=== PATIENT | male | born 1945 | race Caucasian/White ===

== ENCOUNTER → 2023-07-20 10:51 | Outpatient (REF) | payer MEDICARE, SELFPAY ==
[2023-07-20 12:55] LABS: PSA, Total - Diagnostic 7.28 ng/ml (0.0-4.0)
== END ==
LOC: HWLAB 10:51
PROVIDERS: ATTENDING PHYSICIAN Specialist; FAMILY PHYSICIAN Internal Medicine
DX: R97.20 Elevated prostate specific antigen [PSA] (principal)
CPT/HCPCS: 36415; 84153

== ENCOUNTER → 2023-12-10 10:58 | Outpatient (REF) | payer MEDICARE, SELFPAY ==
[2023-12-10 13:27] LABS: PSA, Total - Diagnostic 8.55 ng/ml (0.0-4.0)
== END ==
LOC: HWLAB 10:58
PROVIDERS: ATTENDING PHYSICIAN Specialist; FAMILY PHYSICIAN Internal Medicine
DX: R97.20 Elevated prostate specific antigen [PSA] (principal)
CPT/HCPCS: 36415; 84153

== ENCOUNTER 2024-03-03 16:06 | Inpatient (IN) | payer MEDICARE, SELFPAY ==
[2024-03-03] VITALS (20 sets, daily range): BP systolic 74–125; BP diastolic 42–75; BMI 25.1
--- NOTE | 2024-03-03 14:18 | ED.GENMED ---
History of Present Illness
General
Chief Complaint: Heart Rate Problem
Source: patient
Exam Limitations: none
Time Seen by Provider: 03/03/24 14:18
Nursing documentation reviewed up to this point in time: agreed with
History of Present Illness
History of Present Illness:
The patient is an 78-year-old man who reports he is generally well and healthy. He reports he has had several days of a cough and went to urgent care prior to arrival for evaluation of the cough. Vital signs were checked and he was found to be in
atrial fibrillation. Patient reports this is new to him and he has never had a history of A-fib. Patient denies palpitations, chest pain, dizziness and shortness of breath. He denies fever.
Past History
Past History
ED Past Medical History: Other (History of low blood pressure)
ED Past Surgical History: Appendectomy
Social History
Tobacco: Non-smoker
Alcohol: Occasional
Drug: None
Personal:
Living: with family
Employment: Employed
Family History
Family History: Hypertension
Review of Systems
Review of Systems
Allergies reviewed?: Yes
All Other Systems: ROS reviewed and negative except as documented in HPI and ROS
Constitutional: Reports no symptoms
EENT: Reports no symptoms
Respiratory: Reports cough
Cardiac: Reports no symptoms
ABD/GI: Reports no symptoms
: Reports no symptoms
Musculoskeletal: Reports no symptoms
Skin: Reports no symptoms
Neurological: Reports no symptoms
Endocrine: Reports no symptoms
Hematologic/Lymphatic: Reports no symptoms
Psychiatric: Reports no symptoms
Phy Exam
Physical Exam
Physical Exam:
Physical Exam
General: no apparent distress, not acutely ill, well and comfortable appearing
Neck: supple. no meningeal signs. normal psoterior pharynx
Heart: Tachycardic, irregular
Lungs: no acute respiratory distress. clear bilaterally
Abdomen: normal bowel sounds. not tender. no CVAT
Neuro: alert and oriented. no focal neurological deficits
Skin: no rash
Psychiatric: well kept. interactive and cooperative
Extremities: no edema. no calf tenderness. negative homans. good distal pulses
Course
Orders/Labs/Results
Orders:
Orders
03/03/24 14:14
Electrocardiogram (*1) Stat
Reason for Study: Other
Other Reason for Exam: chest pain
EKG- Treatment ONCE
03/03/24 14:27
Complete Blood Count/With Diff Urgent
Lactic Acid Urgent
PT/INR [Prothrombin Time] Urgent
PTT Urgent
03/03/24 14:31
COVID-19 Antigen Urgent
Source: Nasal Swab
03/03/24 14:36
Comprehensive Metabolic Panel Urgent
TSH Urgent
CR Chest - 2 Views Urgent
Comment:
Reason For Exam: cough
03/03/24 14:40
Diltiazem HCl [Cardizem] 2.5 mg IV NOW STA
03/03/24 14:45
Diltiazem 125 mg/125 ml Nss [Cardizem] 125 mg in 125 ml IV PER PROTOCOL
Initial dose in mg/hr, then titrate:: 2.5
Titrate to keep:: Heart rate 80-100 bpm
Titrate by mg/hr:: 5 mg/hr
Frequency of titrations (minutes):: 15
Maximum dose in mg/hr:: 15
03/03/24 14:47
Diltiazem HCl [Cardizem] 2.5 mg IV NOW STA
03/03/24 15:02
Heparin 4,000 units IV NOW STA
03/03/24 15:03
PTT Urgent
Comment: Obtain baseline before beginning heparin infusion if not already collected
Nursing to Place Non Medication Order As Directed
Physician Order: PTT 6 hours after initial start of Heparin infusion
03/03/24 15:15
Heparin 05700 Units/250 ml 25,000 units in 250 ml IV PER PROTOCOL
Weight to be used for heparin protocol in kilograms (kg):: 83.8
Protocol:: Cardiac Tx/Acute Coronary
PTT Goal Range to be used:: PTT 73 to 111 seconds
Order type:: Initial
INITIAL Infusion Dose (UNITS/KG/hr) & then follow protocol:: 12 units/kg/hr
Infusion Dose in UNITS/hr & then follow protocol (UNITS/hr):: 1,000
INFUSION RATE in mL/hr & then follow protocol (mL/hr):: 10
PTT less than or equal to 64 seconds:: Increase rate by 200 units/hr (+ 2 mL/hr)
PTT 64.1 to 72.9 seconds:: Increase rate by 100 units/hr (+ 1 mL/hr)
PTT 73 to 111 seconds:: Target Range. No change in rate.
PTT 111.1 to 130.9 seconds:: Decrease rate by 100 units/hr (- 1 mL/hr)
PTT 131 to 199.9 seconds:: HOLD for 1 hr. Then decrease rate by 200 units/hr (- 2 mL/hr)
PTT greater than or equal to 200 seconds:: HOLD for 2 hrs & Notify Provider. Then decrease by 200 units/hr (-
2 mL/hr)
Lab follow-up:: Each change, PTT q6h until 2 consecutive are therapeutic. Then PTT
daily.
Abnormal Lab Results
03/03/24
14:27
RBC 4.14 L 10^6/uL
(4.70-6.10)
Hgb 12.6 L g/dL
(13.0-18.0)
Hct 36.6 L %
(39.0-52.0)
MPV 11.9 H fL
(7.4-10.4)
Abs Immat Gran (auto) 0.1 H 10^3/uL
(0-0.05)
Absolute Neuts (auto) 7.8 H 10^3/uL
(1.4-6.5)
Absolute Lymphs (auto) 0.4 L 10^3/uL
(1.2-3.4)
Immature Gran % 0.7 H %
(0-0.5)
Neutrophils % 89.5 H %
(42.2-75.2)
Lymphocytes % 4.7 L %
(20.5-51.1)
PT 16.9 H Sec
(11.4-14.6)
APTT 35.1 H Sec
(23.4-35.0)
03/03/24 14:27
Vital Signs
Initial and Last Documented VS:
Initial Vital Signs
Temp Pulse Resp BP Pulse Ox
98.2 F 135 18 106/69 94
03/03/24 14:17 03/03/24 14:17 03/03/24 14:17 03/03/24 14:17 03/03/24 14:17
Last Documented Vital Signs
Temp Pulse Resp BP Pulse Ox
98.2 F 134 18 106/69 94
03/03/24 14:17 03/03/24 14:48 03/03/24 14:17 03/03/24 14:48 03/03/24 14:17
MDM/Problems Addressed
Differential Diagnosis Includes:
New onset A-fib, new onset a flutter, sinus tachycardia, pneumonia, COVID
MDM/Problems Addressed:
Patient presents with acute tachycardia and cough
*Pulse Oximetry
Patient hypoxic: no
*EKG
Interpreted by ED Provider?: Yes
Interpretation: abnormal
Comparison EKG: changes noted (Now tachycardic, in A-fib)
Rate: tachycardiac
Rhythm: a-fib
[place]: normal axis
Interval: normal interval
QRS Pattern: normal QRS
Ischemia: non-specific ST changes
*Outsole Scheduler Interpretation
Rate: tachycardiac
Interpretation: abnormal
Rhythm: a-fib
*Critical Care Note
Total Time (30-74mins, 75-104mins- exclusive of procedures): Not Applicable
Data Reviewed
Review of Other/Old Records Reveals: Discharge Summary (Hospitalist discharge summary reviewed from 2009 when patient was admitted for fevers and chills)
Source: patient
Patient Management
Social determinants of health affecting care: Living situation and Strong social support
Discussion with other providers: Hospitalist
Escalation/DeEscalation of care consider admission/obs:
Given patient's new presentation of A-fib with RVR, decision made to start anticoagulation and rate control. There is no sign of heart failure.
ED Attending Note
-
Portions of this chart may have been created with voice recognition software.� Occasional wrong word or��sound alike� substitutions may have occurred due to the inherent limitations of voice recognition software.
Discharge Plan
Departure
Patient Disposition: Admit
Date of Disposition: 03/03/24
Time of Disposition: 15:02
Admit to: Telemetry
Presentation/result/management discussed w/ accepting MD/DO: Hospitalist
Patient with high blood pressure during this ER visit?: No
Condition: Good
Discharge Problem:
New onset a-fib, Atrial fibrillation with rapid ventricular response
Prescriptions:
No Action
No Current Medications
0
Referrals:
Tex Lu MD [Family Provider] -
Interventions
Interventions:
*Risk Screen - Suicide Last Done: 03/03/24 14:17
*General Assessment Last Done: 03/03/24 14:17
*Neglect/Abuse Screening Last Done: 03/03/24 14:17
ED- Fall Risk Assessment Last Done: 03/03/24 14:17
*ED COVID-19 Vaccine History Last Done: 03/03/24 14:17
ED- Cardiac Assessment Last Done: 03/03/24 14:17
ED- Pulmonary Assessment Last Done: 03/03/24 14:17
Discharge Date and Time
Print Language: ITALIAN
[2024-03-03 14:41] LABS: % Basophils 0.2 % (0-2); % Immature Granulocytes 0.7 % (0-0.5); % Lymphocytes 4.7 % (20.5-51.1); % Monocytes 4.9 % (1.7-9.3); % Neutrophils 89.5 % (42.2-75.2); Absolute Immature Granulocytes 0.1 10^3/uL (0-0.05); Absolute Lymphocytes 0.4 10^3/uL (1.2-3.4); Absolute Monocytes 0.4 10^3/uL (0.1-0.6); Absolute Neutrophils 7.8 10^3/uL (1.4-6.5); Hematocrit 36.6 % (39.0-52.0); Hemoglobin 12.6 g/dL (13.0-18.0); Mean Corp Hgb Conc. 34.4 g/dL (33.0-37.0); Mean Corpuscular Hgb 30.4 pg (27.0-31.0); Mean Corpuscular Volume 88.4 fL (80.0-94.0); Mean Platelet Volume 11.9 fL (7.4-10.4); Nucleated Red Blood Cells % 0 % (-); Platelet Count 228 10^3/uL (130-400); Red Blood Cell Count 4.14 10^6/uL (4.70-6.10); Red Cell Dist. Width 13.6 % (11.5-14.5); White Blood Cell Count 8.7 10^3/uL (4.8-10.8)
[2024-03-03] MEDS: CARDIZEM 2.5 MG IV (14:48)
[2024-03-03 14:51] LABS: INR 1.34; PT 16.9 Sec (11.4-14.6)
[2024-03-03 14:52] LABS: APTT 35.1 Sec (23.4-35.0)
[2024-03-03 14:57] LABS: COVID-19 Antigen Negative (Negative)
[2024-03-03] MEDS: CARDIZEM 125 IV (14:57)
[2024-03-03 14:58] LABS: Lactic Acid 1.1 mmol/L (0.7-2.0)
[2024-03-03] MEDS: HEPARIN 4000 UNITS IV (15:26)
[2024-03-03] MEDS: HEPARIN 25000 UNITS/250 ML IV (15:27)
--- NOTE | 2024-03-03 15:45 | HPS.HSE ---
Addendum entered and electronically signed by Cherelle Chacon PA-C 03/03/24 16:28:
CMP results reviewed and reveal Cr 1.8 and Elevated LFT
Assessment/Plan:
Elevated Creatinine, suspect component of MARQUISE in setting of recent URI and hypotension
-Continue IVFs
-Recheck creatinine in AM
-Monitor bladder scans as patient has history of BPH but not currently on any medications
Abnormal LFTs, possibly related to recent viral infection and hypotension
-Continue to trend LFTs
Original Note:
Family Physician
-
Family Physician: Cong Lu
Chief Complaint
-
Elevated Heart Rate
History of Present Illness
Patient is an 78 y/o male without significant past medical history who was sent from urgent care with elevated heart rate. Patient reports a 'bad cold' for the past week. He reports cough, mild sore throat, generalized weakness and fatigue. He
went urgent care today due to persistent symptoms where he was found to have a very elevated heart rate and ECG revealed atrial fibrillation. Patient denies any prior cardiac history including atrial fibrillation. He denies chest pains or
palpitations.
Medical History
Past Medical History
Past Medical History: Reports Other
Additional Past Medical History:
Right Upper Ext DVT in 2018
BPH
Past Surgical History: Reports Other
Additional Past Surgical History:
Appendectomy
Social History
Tobacco: Non-smoker
Alcohol: Occasional (One beer once a week)
Personal:
Family History
Family History: Not pertinent
Allergies / Home Medications
Allergies reflects when Allergies were last updated in [employer].
Home Medications with original date entered in [employer]
Allergy/Medication List:
Allergies
Allergy/AdvReac Type Severity Reaction Status Date / Time
No Known Allergies Allergy Verified 05/28/16 09:49
Home Medications
No Meds [No Current Medications] 03/03/24
Review of Systems
-
A 12 point ROS was completed and negative except as noted: Yes
Constitutional: Denies Fever or Chills
Respiratory: Reports Cough; Denies Trouble Breathing
Cardiac: Denies Chest Pain or Palpitations
Abdomen/GI: Denies Abdominal Pain, Nausea, Vomiting or Diarrhea
Physical Exam
Vital Signs
Vital Signs
Temp Pulse Resp BP Pulse Ox
98.2 F 147 25 90/56 92
03/03/24 14:17 03/03/24 15:32 03/03/24 15:32 03/03/24 15:32 03/03/24 15:32
Physical Exam
General: Comfortable and Conversant
HEENT: Anicteric and Moist mucous membranes
Respiratory: Clear and Non Labored Respirations
Cardiac: S1/S2, Irregular Rhythm and Tachycardia; No Murmur
GI: Soft and Non Tender
Rectal: Deferred by Provider
Musculoskeletal: No Clubbing, No Cyanosis and No Edema
Skin: Warm and Dry
Neuro: Awake, Alert and Nonfocal/grossly intact
Psych: Calm
Laboratory Results
-
03/03/24 14:27
Laboratory Results
PT 16.9 Sec (11.4-14.6) H 03/03/24 14:27
INR 1.34 03/03/24 14:27
APTT 35.1 Sec (23.4-35.0) H 03/03/24 14:27
Lactic Acid 1.1 mmol/L (0.7-2.0) 03/03/24 14:27
Data Reviewed
-
Lab Data: Labs Reviewed by me
Impression/Plan
-
Atrial Fibrillation with Rapid Ventricular Response, new diagnosis
-Consult Cardiology
-Continue heparin drip
-Continue cardizem drip
-Check Echo
-Await TSH
BPH
-Patient is not on any medications as outpatient
DVT proph: Heparin drip
Code Status: Full Code
--- NOTE | 2024-03-03 16:06 | W.PN.UPDATE ---
Addendum entered and electronically signed by Jacinda Timmons MD 03/03/24 22:26:
CXR shows bilateral infiltrates concerning for PNA. Checked BNP which was 93364 and Procal of 2 so IV fluids were stopped and Ceftriaxone/Azithromycin started.
Original Note:
Update Note
Progress Note Update
This is an addendum to the H&P written by Cherelle Choi on 03/03/2024.� Patient seen and examined independently with PA.
78-year-old male past medical history of BPH, right upper extremity DVT in 2018 sent in from urgent care after he went in for upper respiratory symptoms ongoing for a week.� Found to be in new onset atrial fibrillation with RVR and sent into the
emergency room.
Cardizem drip and heparin drip started.� Check TSH.� Check echo.� Cardiology consulted.
[2024-03-03 16:09] LABS: ALT (SGPT) 89 U/L (0-50); AST (SGOT) 103 U/L (17-59); Albumin 3.1 g/dl (3.5-5.0); Alkaline Phosphatase 589 U/L (38-126); Blood Urea Nitrogen 35 mg/dl (9-20); Calcium 9.4 mg/dl (8.4-10.2); Carbon Dioxide 15 mmol/L (22-30); Chloride 107 mmol/L (98-107); Estimated Creatinine Clearance 36 ml/min; Glucose 109 mg/dl (70-99); Potassium 4.1 mmol/L (3.5-5.1); Sodium 137 mmol/L (135-145); Total Bilirubin 2.9 mg/dl (0.2-1.3); Total Protein 6.4 g/dl (6.3-8.2); eGFR 37.58
[2024-03-03 16:35] LABS: TSH 0.69 uIU/ml (0.47-4.68)
[2024-03-03] MEDS: NSS 1000 IV (16:59)
[2024-03-03] MEDS: NSS 500 IV (17:10)
--- NOTE | 2024-03-03 18:38 | PTCARENOTE ---
patient admitted to IVU, monitor placed NSR, VSS. at present IV Cardizem drip is OFF. IV heparin @ 1000units/hr and IV NSS @ 80cc/hr via left forearm without difficulties. patient is blind in left eye. patient has dry cough, lung fragoso diminished
bialt, on RA. oriented patient to room and surroundings, ordered dinner.
--- NOTE | 2024-03-03 18:54 | CON.CAR ---
Addendum entered and electronically signed by Davonte Villatoro MD 03/03/24 19:54:
Elevated LFTs. Defer to primary team for additional evaluation.
Original Note:
Consultation
Consultation Request
Date/Time Consultation Requested: 03/03/2024 at 1700
Date/Time Consultation Performed: 03/03/2024 at 1800
Requesting Provider: Hospitalist
Performing Provider: Dr. Villatoro
Reason for Consultation: A-fib
Medical History
-
History of Present Illness:
78 year male admitted with new onset A-fib with RVR. Patient stated he was feeling well until Wednesday he felt like he developed a cough without sputum production thought he was just getting a cold. He tested negative for COVID at home. Cough has
persisted all week he thought he felt a little better but his insisted that he go for evaluation. He went to urgent care was noted to be in A-fib with RVR so he was directed to the emergency department. No fever no chest pain no shortness of
breath orthopnea or lower extremity edema no palpitations or heart racing. No prior history of cardiac disease.
Denies history of stroke/TIA, CAD, PAD, hypertension, diabetes or heart failure. No history of bleeding issues. He states he had a blood clot in his arm in 2018. He does not know the details. He states he was not treated with anticoagulation.
There was a venous ultrasound from 2018 which showed no occlusive DVT small amount of residual nonocclusive thrombus in the right subclavian vein and right basilic vein
Past medical history
Right upper extremity DVT in 2018 BPH
Past Medical History
Past Medical History: Other (As above)
Social History
Tobacco: Non-Smoker
Living: Alone
Family History
Family History: Other (Negative for premature CAD)
Allergies / Home Medications
Allergy/AdvReac Type Severity Reaction Status Date / Time
No Known Allergies Allergy Verified 05/28/16 09:49
�Medication �Instructions �Recorded �Confirmed �Type
No Meds [No Current Medications] 03/03/24 03/03/24 History
Review of Systems
-
All other systems: Negative unless noted
Physical Exam
Vital Signs
Temp Pulse Resp BP Pulse Ox
98.2 F 77 18 100/72 95
03/03/24 18:22 03/03/24 18:23 03/03/24 18:22 03/03/24 18:23 03/03/24 18:22
Lab Results
03/03/24 14:27
03/03/24 15:32
Physical Exam
General: Well Developed
HEENT: Normocephalic
Respiratory: Other (No wheezes rales or rhonchi)
Cardiac: Irregular Rhythm
GI: Soft, Non Tender and Non Distended
Genito-urinary: No Costovertebral Tender
Musculoskeletal: No Clubbing
Skin: Warm, Dry and Rash (None)
Neuro: Awake, Alert and Oriented
Hematologic/Lymphatic: No Lymphadenopathy
Psych: Calm and Other (Cooperative)
Impression / Plan
-
A-fib with RVR.
-New onset.
- Duration unknown
-[id number] (a age greater than 75)
-Spontaneously converted back to sinus rhythm
-Currently on IV heparin can transition to Eliquis 2.5 mg twice daily (considering age 78 and creatinine greater than 1.5) when okay with primary team
-Echo
-TSH
-Transition IV Cardizem to oral.
.
Abnormal chest x-ray. As noted below
As per report .there are fairly confluent regions of parenchymal opacity in the left hilar and suprahilar region as well as the right suprahilar, hilar, and infrahilar region, central predominance. Additionally, there is patchy parenchymal opacity
within the rest of both lungs. In the right lung particularly, some of these regions have a somewhat nodular configuration.
All these findings are new since examination in 2018.One consideration would be bilateral pneumonia. Neoplastic disease or a combination of neoplasia and pneumonia must also be considered, and continued close follow-up is advised. The pattern does
not appear to be highly suggestive of a pulmonary edema pattern. No significant pleural effusion is evident.
-Consider chest CT
-Additional evaluation as directed by primary team
.
Renal insufficiency creatinine 1.8. Last creatinine in [facility] 1.5. Unclear if patient has acute on chronic MARQUISE or if this is just his baseline CKD. Continue to monitor.
.
History of DVT right upper extremity per history patient denies ever being on anticoagulation there are venous ultrasounds with nonocclusive thrombus as noted above which subsequently resolved on follow-up studies.
Data Reviewed
-
EKG: Report Reviewed by me
Medical Tests (Nuc Med, Echo etc): Report Reviewed by me
Labs: Labs Reviewed by me
[2024-03-03 20:42] LABS: NT-proBNP 10100 pg/ml
[2024-03-03 21:39] LABS: APTT 68.8 Sec (23.4-35.0)
[2024-03-03] MEDS: STERILE WATER FOR INJECTION 10 ML IV (23:25)
[2024-03-03] MEDS: ROCEPHIN 1000 MG IV (23:25)
[2024-03-03] MEDS: ZITHROMAX INFUSION 250 IV (23:25)
[2024-03-04] VITALS (11 sets, daily range): BP systolic 94–130; BP diastolic 51–82; BMI 24.7
[2024-03-04] MEDS: TYLENOL 650 MG PO ×2 (00:34→23:28)
--- NOTE | 2024-03-04 01:48 | PTCARENOTE ---
Assumed care of the pt @ 1900. AAOx3 SR on the monitor. VSS Heparin gtt titrated to maintain PTT 73-111. Stress incontinence. Occasional cough non productive. Call ibarra within reach
[2024-03-04 04:20] LABS: Hemoglobin 11.8 g/dL (13.0-18.0); Mean Corp Hgb Conc. 33.7 g/dL (33.0-37.0); Mean Corpuscular Hgb 30.3 pg (27.0-31.0); Mean Corpuscular Volume 89.7 fL (80.0-94.0); Mean Platelet Volume 11.8 fL (7.4-10.4); Platelet Count 229 10^3/uL (130-400); Red Cell Dist. Width 13.8 % (11.5-14.5); White Blood Cell Count 8.9 10^3/uL (4.8-10.8)
[2024-03-04 04:28] LABS: APTT 48.4 Sec (23.4-35.0)
[2024-03-04 05:31] LABS: ALT (SGPT) 83 U/L (0-50); AST (SGOT) 90 U/L (17-59); Albumin 2.9 g/dl (3.5-5.0); Alkaline Phosphatase 656 U/L (38-126); Blood Urea Nitrogen 41 mg/dl (9-20); Calcium 8.7 mg/dl (8.4-10.2); Carbon Dioxide 14 mmol/L (22-30); Chloride 108 mmol/L (98-107); Direct Bilirubin 2.9 mg/dl (0.0-0.4); Estimated Creatinine Clearance 27 ml/min; Glucose 110 mg/dl (70-99); Potassium 4.2 mmol/L (3.5-5.1); Sodium 138 mmol/L (135-145); Total Bilirubin 3.2 mg/dl (0.2-1.3); Total Protein 6.1 g/dl (6.3-8.2); eGFR 26.61
--- NOTE | 2024-03-04 05:55 | PTCARENOTE ---
Pt CO2 14 on morning MARK Vaz[employer]VIEW[employer] notified
[2024-03-04] MEDS: SODIUM BICARBONATE 1150 MEQ IV ×2 (06:47→23:27)
--- NOTE | 2024-03-04 06:58 | W.PN.UPDATE ---
Update Note
Progress Note Update
patient with anion gap acidosis with gap of 14. Nephrology consult placed and sodium bicarbonate in sterile water at 50 mls/hr ordered. Patient with hx of urinary retention so awaiting bladder scan result. Has hx prostate enlargement.
--- NOTE | 2024-03-04 08:12 | W.PN.HOSP.TC ---
Today's Communication/Plan
-
Transfer to IMU
Bolus IV fluid
Trend BP
Hold heparin and Cardizem for now
Cont Zythromax + Rocephin
Assessment / Plan
Assessment / Plan
78-year-old male past medical history of BPH, right upper extremity DVT in 2018 sent in from urgent care after he went in for upper respiratory symptoms ongoing for a week.� Found to be in new onset atrial fibrillation with RVR and sent into the
emergency room.Cardizem drip and heparin drip started in ED.
Chest x-ray (03/03):
As per report .there are fairly confluent regions of parenchymal opacity in the left hilar and suprahilar region as well as the right suprahilar, hilar, and infrahilar region, central predominance. Additionally, there is patchy parenchymal opacity
within the rest of both lungs. In the right lung particularly, some of these regions have a somewhat nodular configuration.
All these findings are new since examination in 2018.One consideration would be bilateral pneumonia. Neoplastic disease or a combination of neoplasia and pneumonia must also be considered, and continued close follow-up is advised. The pattern does
not appear to be highly suggestive of a pulmonary edema pattern. No significant pleural effusion is evident.
#New onset A-fib with RVR
-[id number]
-Spontaneously converted back to sinus rhythm
-Currently on IV heparin- per cards can transition to Eliquis 2.5 mg twice daily pending renal function
-ProBNP > 45052, Check Echo
-TSH WNL
-Hold Cardizem for now given BPs on the lower side
#High anion gap Metabolic acidosis
- Current anion gap=14
- Creatinine 2.4. (Last creatinine in [facility] 1.5). Acute on chronic kidney injury
- Will give bolus fluid and transfer patient to IMU for closer monitoring
- MARQUISE might be in the setting of PNA
- History of BPH but no retention and has good output
- Trend BPs
- Bicarb drip started
# Possible B/L Pneumonia
- Cont Zitromax + Rocephin
- Started fluids
- Afebrile
- No leukocytosis
- Lactic acid WNL- Procal elevated
- Will order chest CT for further evaluation of possible mass in the following days
# Elevated LFTs
- Might be reactive in the setting of underlying infection or due to CHF
- Will cont to monitor LFT
- Will check RUQ U/S down the road if elevated LFTs does not improve
#Suspicious History of DVT right upper extremity
- Was not placed on any anti-coagulation at that time
# Excessive bleeding from IV line
- Will hold Heparin and other AC for now
Anticipated Discharge: Today
Subjective/Interval History
-
Date of Service: March 04, 2024
Patient denies chest pain, coughs or shortness of breath. Denies abdominal pain. Is able to empty bladder w/o any signs of retention.
Objective Data
-
Labs:
Laboratory Results
03/03/24 03/03/24 03/04/24
15:03 21:17 03:47
WBC 8.9
Hgb 11.8 L
Hct 35.0 L
Plt Count 229
APTT Cancelled 68.8 H 48.4 H
Sodium 138
Potassium 4.2
Chloride 108 H
Carbon Dioxide 14 L*
BUN 41 H
Creatinine 2.4 H
Glucose 110 H
Calcium 8.7
Total Bilirubin 3.2 H
AST 90 H
ALT 83 H
Alkaline Phosphatase 656 H
03/04/24
11:00
WBC
Hgb
Hct
Plt Count
APTT Pending
Sodium
Potassium
Chloride
Carbon Dioxide
BUN
Creatinine
Glucose
Calcium
Total Bilirubin
AST
ALT
Alkaline Phosphatase
Vital Signs:
Vital Signs
Temp Pulse Resp BP Pulse Ox
97.5 F 75 24 94/65 95
03/04/24 03:50 03/04/24 06:15 03/04/24 03:50 03/04/24 03:42 03/04/24 06:14
I&O
03/03/24 03/04/24 03/05/24
06:59 06:59 06:59
Intake Total 80 / 80 132 / 132
Balance 80 / 80 132 / 132
Review of Systems
-
History Source: Patient
All other systems: Reviewed and negative
Physical Exam
-
General: Appears in Distress
HEENT: Normocephalic and Anicteric
Respiratory: Crackles (heard over left base) and Non Labored Respirations
Cardiac: Regular Rhythm, S1/S2 and Tachycardic (negative)
GI: Soft, Nondistended, Normal Bowel Sounds and Tender (Mild RUQ tenderness)
Genito-urinary: No Costovertebral Tender
Musculoskeletal: No Clubbing, No Cyanosis and No Edema
Skin: Warm and Dry
Neuro: Awake, Alert, Oriented and AO x 3
--- NOTE | 2024-03-04 08:29 | W.PN.CD ---
Today's Communication / Plan
-
back in sinus and off IV cardizem
would add lwo dose BB when BP will tolerate.
concerning rising creatinine to 2.4 and metabolic acidosis
optimize BP. Patient receiving additonal volume.
abx to cover PNA being directed by the primary team/ hospitalists
issues reviewed wtChristian Shin
Impression / Plan
-
A-fib with RVR.
-New onset.
- Duration unknown
-[id number] (a age greater than 75)
-Spontaneously converted back to sinus rhythm
-Currently on IV heparin
-Echo
-TSH
-Toprol 25 mg aday if BP tolerates
.
Abnormal chest x-ray. As noted below
As per report .there are fairly confluent regions of parenchymal opacity in the left hilar and suprahilar region as well as the right suprahilar, hilar, and infrahilar region, central predominance. Additionally, there is patchy parenchymal opacity
within the rest of both lungs. In the right lung particularly, some of these regions have a somewhat nodular configuration.
All these findings are new since examination in 2018.One consideration would be bilateral pneumonia. Neoplastic disease or a combination of neoplasia and pneumonia must also be considered, and continued close follow-up is advised. The pattern does
not appear to be highly suggestive of a pulmonary edema pattern. No significant pleural effusion is evident.
-Consider chest CT
- Additional evaluation as directed by primary team
- abx to cover PNA
.
Renal insufficiency creatinine- acute on chronic . on rise to 1.8 to 2.4. also with associated acidosis. Bp relatively low overnight despite being off IV cardizem
acidosis. in setting of above including renal insuffiency
- defer to primary regarding assesemnt
.
elevated LVF- evaluation per hospitaists. if patient having non contrast chest CT may consider including abdomen
.
History of DVT right upper extremity per history patient denies ever being on anticoagulation there are venous ultrasounds with nonocclusive thrombus as noted above which subsequently resolved on follow-up studies.
Physical Exam
Vital Signs/Labs
Vital Signs
Temp Pulse Resp BP Pulse Ox
97.5 F 75 24 94/65 95
03/04/24 03:50 03/04/24 06:15 03/04/24 03:50 03/04/24 03:42 03/04/24 06:14
03/03/24 03/04/24 03/05/24
06:59 06:59 06:59
Actual Weight 83.8 kg 82.4 kg
03/04/24 03:47
03/04/24 03:47
PT 16.9 Sec (11.4-14.6) H 03/03/24 14:27
INR 1.34 03/03/24 14:27
APTT 48.4 Sec (23.4-35.0) H 03/04/24 03:47
TSH 0.69 uIU/ml (0.47-4.68) 03/03/24 15:32
03/03/24
14:27
[id number] Pept 14240
Physical Exam
Respiratory: Respiratory effort normal
GI: Soft
Neuro/Psych: Alert
Data Reviewed
-
Date of Service: March 04, 2024
--- NOTE | 2024-03-04 08:34 | W.PN.UPDATE ---
Update Note
Progress Note Update
I saw and evaluated the patient. I reviewed the resident�s note and agree with findings and plan as documented in the resident�s note.
Currently denies chest pain or shortness of breath.
Gen: NAD, AAOx3.
Eyes: EOMI, PERRLA, no scleral icterus.
Neck: supple.
CV: RRR, +S1/S2, no m/r/g.
Resp: Faint rales left base, otherwise clear to auscultation bilaterally
Abd: +BS, soft, NT, ND
Skin: No rashes.
Neuro: CN 2-12 intact, non-focal.
Psych: Normal mood and affect.
CXR: Bilateral parenchymal opacities as described, new since examination in 2018.
Acute PNA:
-viral vs bacterial. Procal elevated but procal is not reliable with MARQUISE.
-cont Rocephin/Azithro
-acute PNA appears to be the primary disease process at this time
MARQUISE and non-AG met acidosis:
-likely due to recent URI (now PNA) and hypotension
-AG 14 (12+/-2)
-1L NS bolus wide open, recheck BP after. Will likely require another 1L NS after.
-Continue NaHCO3 infusion after volume rescucitated
Elevated LFTs:
-likely due to infection and hypotension
-Continue to trend LFTs
-check RUQ U/S (can be done after BP improved, likely later today)
Atrial Fibrillation with Rapid Ventricular Response, new diagnosis:
-converted to SR with cardizem gtt
-hypotension limits ability to use beta-lorne or Cardizem. Should he go back into atrial fibrillation with a rapid ventricular response amiodarone will need to be considered.
-stop heparin gtt with acute bleeding from LUE
-TSH normal
-check echo
-discussed with cardiology
BPH
-Patient is not on any medications as outpatient
FULL/SCDs (stopping heparin due to acute bleeding)
Transfer to IMU
Total time spent on today's encounter was 50 minutes which included time spent in counseling the patient/family regarding diagnosis and treatment plan as listed above, goals of care, and symptom management. Case was discussed with nursing staff,
specialists, and care coordinators/case management. All labs and imaging personally reviewed by me. Remainder the time spent in detailed review of previous records, lab data, imaging, and other medical provider documentation.
[2024-03-04] MEDS: NSS 1000 IV ×3 (09:02→15:49)
--- NOTE | 2024-03-04 09:15 | W.CON.NEPH ---
Consultation
-
Date/Time Consultation Requested: 03/04/2024 6:45 AM
Date/Time Consultation Performed: 03/04/2024 9:15 AM
Requesting Provider: Dr. Shin
Performing Provider: Dr. Pinedo
Reason for Consultation: Acute kidney injury
Medical History
-
Chief Complaint: Acute kidney injury
History of Present Illness:
The patient is an 78 y/o male without significant past medical history who was sent from urgent care with elevated heart rate. The patient does have a past medical history of chronic kidney disease stage III as noted by a creatinine level of 1.5 as
of 07/24/2021.this creatinine of 1.5 is longstanding dating back to 2009 when he had been previously admitted to the hospital with urinary retention and fever of unknown origin. 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
vein and right basilic vein but is not maintained on oral anticoagulation therapy .The patient reports a 'bad cold' for the past week. He reports cough, mild sore throat, generalized weakness and fatigue. He went urgent care today due to
persistent symptoms where he was found to have a very elevated heart rate and ECG revealed atrial fibrillation. Patient denies any prior cardiac history including atrial fibrillation. He denies chest pains or palpitations. On presentation to the
hospital he was noted to have acute on chronic kidney injury with a creatinine now up to 2.4 off his admission baseline of 1.8 and nephrology was asked to see the patient for acute on chronic kidney injury.
Social History
Tobacco: Non-Smoker
Alcohol: None
Personal: Single
Allergies / Home Medications
Allergy/AdvReac Type Severity Reaction Status Date / Time
No Known Allergies Allergy Verified 05/28/16 09:49
�Medication �Instructions �Recorded �Confirmed �Type
No Meds [No Current Medications] 03/03/24 03/03/24 History
Review of Systems
-
History Source: Patient
All other systems: Negative unless noted
Respiratory: Cough
Physical Exam
Vital Signs
Vital Signs
Temp Pulse Resp BP Pulse Ox
97.5 F 75 24 94/65 95
03/04/24 03:50 03/04/24 06:15 03/04/24 03:50 03/04/24 03:42 03/04/24 06:14
Lab Results
03/04/24 03:47
03/04/24 03:47
WBC 8.9 10^3/uL (4.8-10.8) 03/04/24 03:47
RBC 3.90 10^6/uL (4.70-6.10) L 03/04/24 03:47
Hgb 11.8 g/dL (13.0-18.0) L 03/04/24 03:47
Hct 35.0 % (39.0-52.0) L 03/04/24 03:47
Plt Count 229 10^3/uL (130-400) 03/04/24 03:47
Sodium 138 mmol/L (135-145) 03/04/24 03:47
Potassium 4.2 mmol/L (3.5-5.1) 03/04/24 03:47
Chloride 108 mmol/L (98-107) H 03/04/24 03:47
Carbon Dioxide 14 mmol/L (22-30) L* 03/04/24 03:47
BUN 41 mg/dl (9-20) H 03/04/24 03:47
Creatinine 2.4 mg/dL (0.7-1.3) H 03/04/24 03:47
eGFR 26.61 03/04/24 03:47
Glucose 110 mg/dl (70-99) H 03/04/24 03:47
Calcium 8.7 mg/dl (8.4-10.2) 03/04/24 03:47
Yfj-Y-Nasqqqiyyqa Pept 43254 pg/ml 03/03/24 14:27
Albumin 2.9 g/dl (3.5-5.0) L 03/04/24 03:47
Physical Exam
General: AOx3, Nontoxic , NAD
HEENT: PERRL, EOMI, Anicteric, Conjunctivae Clear, Ear/Nose Intact, Hearing Normal, Oropharynx Clear/Moist, Dentition Intact, Facial Symmetry, Neck Supple, Neck: Trachea Midline, No JVD and No Thyromegaly, no Bruits
Respiratory: coarse to auscultation bilaterally with normal lung excursion, decreased breath sounds to bases, no rales or wheezes no rhonchi
Cardiac: Irregular irregular
Breast: Deferred by me
Abdomen: Soft, Nontender, Nondistended, Normal Bowel Sounds and No Hepatosplenomegaly
Rectal: Deferred by Provider
Genito-urinary: No Costovertebral Tenderness
Extremities: No Clubbing, No Cyanosis and No Edema
Skin: No Rash or open lesions
Neuro: Nonfocal/Grossly Intact, CN II-XII (Intact) and Strength (Musculoskeletal exam 5 out of 5 both upper and lower extremities)
Hematologic/Lymphatic: No Cervical Lymphadenopathy, No Submandibular Lymphadenopathy and No Supraclavicular Lymphadenopathy
Psych: Mood/afflect pleasant, Insight/judgement good and Appropriate
Vascular: plus 2 pedal and radial pulses
Data Reviewed
-
Radiology: Image Personally Visualized and interpreted (Bilateral pulmonary hilar opacities hyperinflated lung fragoso)
Medical Tests (Nuc Med, Echo etc): Other (EKG on admission report reviewed atrial fibrillation with rapid ventricular response of 122 bpm)
Labs: Labs Reviewed by me (BMP CBC)
Old Records: Reviewed (Reviewed previous creatinine level of 1.5 in electronic medical record from July 24, 2021)
Assessment/Plan
-
Impression:
MARQUISE
CKD 3 (1.5-1.8)
New onset atrial fibrillation with rapid ventricular response
Pneumonia (Bilateral hilar and suprahilar opacities)
Nongapped and gapped metabolic acidosis
BPH
History of DVT
Plan:
MARQUISE/metabolic acidosis
-I suspect prerenal he induced in setting of hypotension with atrial fibrillation with rapid ventricular response
-Agree with alkaline IV fluids provided by primary service for nongap and gap metabolic acidosis
-Check kidney and bladder ultrasound
-Check urinalysis fractional secretion of sodium and urine protein to creatinine ratio
-Concur with IV fluids in setting of nongap and gap metabolic acidosis
-Check lactate level
--- NOTE | 2024-03-04 11:32 | PTCARENOTE ---
Left anticubital INT d/c'd because of leaking. Pt perfusely bleeding from site. Heparin drip stopped. aware. Will monitor.
--- NOTE | 2024-03-04 11:46 | PTCARENOTE ---
Pt voided in the bathroom. No measurement of urine. Bladder scan post void showed 923 ml in pt's bladder. Pt to go for bladder ultrasound. Will notify MD and note current orders.
--- NOTE | 2024-03-04 12:12 | PTCARENOTE ---
Report given to Haider in IMU. Pt will be transferred to [id number] after ultrasound of bladder.
[2024-03-04 13:49] LABS: Urine Albumin Trace (Neg - Trace); Urine Bilirubin Negative (Negative); Urine Character Slightly Cloudy (Clear); Urine Color Amber; Urine Glucose Negative (Negative); Urine Ketone Negative (Negative); Urine Leukocyte Negative (Negative); Urine Nitrite Negative (Negative); Urine Occult Blood Trace (Negative); Urine Specific Gravity 1.015 (<1.030); Urine Urobilinogen Negative (Neg - 1+)
[2024-03-04 14:22] LABS: Protein/creatinine Ratio 0.5; Urine Protein 45 mg/dl; Urine Sodium 34 mmol/L (30-90)
[2024-03-04 14:37] LABS: Urine Bacteria Moderate (Negative); Urine Red Blood Cell 0-2 /HPF (0-2)
--- NOTE | 2024-03-04 19:33 | PTCARENOTE ---
Pt received as a transfer from IVU after renal ultrasound. AAOx3. Impulsive. Bed alarm in place. Denying pain. SaO2 95% on room air. Diminished breath souths with crackles at left base. Tachypneic. RR 20s - 30s. Pt denying shortness of breath or
increased work of breathing. Occasional harsh nonproductive cough. Sinus Rhythm/Sinus tach on butadiene convertor operator. HR 80s - 90s at rest. Trace LE edema. Abdomen distended. (+) bowel sounds. (+) appetite. Pt to be NPO @ midnight for abdominal
ultrasound tomorrow. Pt with frequent urination attempts. Bladder scanned by IVU nurse for 923ml after 100ml urination prior to transfer. Pt straight cath'd for 1125ml ritesh urine. 1,000ml NSS bolus X2 infused per order. Sterile water with Sodium
Bicarbonate 150 meq infusing @ 100 ml/hr. 19:00 labs drawn and sent.
[2024-03-04 19:39] LABS: Blood Urea Nitrogen 43 mg/dl (9-20); Calcium 8.1 mg/dl (8.4-10.2); Carbon Dioxide 22 mmol/L (22-30); Chloride 107 mmol/L (98-107); Estimated Creatinine Clearance 31 ml/min; Glucose 122 mg/dl (70-99); Potassium 3.9 mmol/L (3.5-5.1); Sodium 138 mmol/L (135-145); eGFR 31.23
[2024-03-04] MEDS: STERILE WATER FOR INJECTION 10 ML IV (23:27)
[2024-03-04] MEDS: ROCEPHIN 1000 MG IV (23:28)
[2024-03-04] MEDS: ZITHROMAX INFUSION 250 IV (23:28)
[2024-03-05] VITALS (35 sets, daily range): BP systolic 79–116; BP diastolic 59–89
--- NOTE | 2024-03-05 00:36 | W.PN.UPDATE ---
Update Note
Progress Note Update
FALL
Patient had witness fall, denies hitting head, LOC, VSS. No apparent visible injuries noted at this time. Patient denies pain and SOB. Nursing continue to monitor.
--- NOTE | 2024-03-05 00:52 | PTCARENOTE ---
This nurse was standing at pt's bedside preparing to administer medications. Bed alarm on as pt is quick to try and sit on side of bed or get up if he has urge to pee. Bed alarm went off and pt quickly sat on side of bed. As this RN walked around
bed to get to the pt, he began leaning to his left, sliding off the bed and onto the floor. Pt did not appear to hit his head and he denies this as well. This RN called for help and multiple RNs entered the room, assessed pt and assisted getting him
back in bed. Pt denies any pain. MIKE Kruger notified and was at bedside.
[2024-03-05] MEDS: CARDIZEM 5 MG IV (01:41)
[2024-03-05] MEDS: CORDARONE 103 MG IV ×2 (02:54→08:28)
[2024-03-05 06:17] LABS: Hematocrit 30.6 % (39.0-52.0); Hemoglobin 10.7 g/dL (13.0-18.0); Mean Corpuscular Hgb 30.8 pg (27.0-31.0); Mean Corpuscular Volume 88.2 fL (80.0-94.0); Mean Platelet Volume 11.9 fL (7.4-10.4); Platelet Count 195 10^3/uL (130-400); Red Blood Cell Count 3.47 10^6/uL (4.70-6.10); Red Cell Dist. Width 13.9 % (11.5-14.5)
[2024-03-05 06:39] LABS: ALT (SGPT) 68 U/L (0-50); AST (SGOT) 80 U/L (17-59); Albumin 2.4 g/dl (3.5-5.0); Alkaline Phosphatase 590 U/L (38-126); Blood Urea Nitrogen 42 mg/dl (9-20); Calcium 7.8 mg/dl (8.4-10.2); Carbon Dioxide 19 mmol/L (22-30); Chloride 109 mmol/L (98-107); Direct Bilirubin 3.3 mg/dl (0.0-0.4); Estimated Creatinine Clearance 31 ml/min; Glucose 97 mg/dl (70-99); Potassium 3.7 mmol/L (3.5-5.1); Sodium 139 mmol/L (135-145); Total Bilirubin 3.7 mg/dl (0.2-1.3); Total Protein 5.2 g/dl (6.3-8.2); eGFR 31.23
[2024-03-05 06:56] LABS: Intact PTH 78.4 pg/ml (13.6-85.8)
[2024-03-05] MEDS: NSS 500 IV (07:12)
--- NOTE | 2024-03-05 07:33 | PTCARENOTE ---
Pt's bp 95/65. MIKE Kruger notified and NSS bolus Rx'd (see MAR). This RN straight cathed PT last night and still retaining this morning with >500 on bladder scan. Notified MIKE Kruger and asked if I should straight cath or place boogie. Rx received for
boogie. 16 Taiwanese boogie now in place draining ritesh urine (see worklist). Pt now resting in bed with call ibarra in reach.
--- NOTE | 2024-03-05 08:02 | W.PN.CD ---
Today's Communication / Plan
-
Start IV amiodarone drip with bolus of 150
Agree with IV fluids.
Start Eliquis.
Impression / Plan
-
A-fib with RVR.
-Initially back into sinus rhythm but A-fib has recurred overnight.
-With this, hemodynamics are tenuous, will start amiodarone to establish rhythm control, as we have seen sinus yesterday.
-will have to closely monitor lfts
-[id number] 2 (a age greater than 75)--start eliquis
-
Sepsis likely 2/2 to PNA (abnormal cxr, cough, elevated procal)
-bp responding to IVF
-treatement as per medicine
Renal insufficiency creatinine- acute on chronic with associated acidosis.
-renal following
-likely 2/2 rto hypotension
-will try to rhythm control to help with Hemodynamics
.
elevated LFTs- evaluation per medicine
-monitor now that we need amiodarone
.
History of DVT right upper extremity per history patient denies ever being on anticoagulation there are venous ultrasounds with nonocclusive thrombus as noted above which subsequently resolved on follow-up studies.
Subjective:
He is feeling ok, has no perception of the atrial fibrillation. No palpitations or chest pain. Does not feel overtly short of breath. Lying completely flat breathing comfortably.
Report of a fall overnight, he states he just was off balance does not routinely fall he slipped on his socks. Lives completely independently with spouse.
TTE: CONCLUSIONS
Normal biventricular size and systolic function without regional wall motion
abnormality.
Mild aortic regurgitation.
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
No prior study available for comparison.
Physical Exam
Vital Signs/Labs
Vital Signs
Temp Pulse Resp BP Pulse Ox
99.7 F 131 30 95/65 92
03/05/24 01:33 03/05/24 05:50 03/05/24 05:50 03/05/24 05:50 03/05/24 05:50
03/04/24 03/05/24 03/06/24
06:59 06:59 06:59
Actual Weight 83.8 kg 82.4 kg
03/05/24 05:53
03/05/24 05:53
PT 16.9 Sec (11.4-14.6) H 03/03/24 14:27
INR 1.34 03/03/24 14:27
APTT Cancelled 03/04/24 11:00
TSH 0.69 uIU/ml (0.47-4.68) 03/03/24 15:32
03/03/24
14:27
Xke-G-Nniszktwrsg Pept [id number]
Physical Exam
Constitutional: No acute distress
Cardiovascular: Pedal edema is absent, JVD pressure is normal, Diastolic murmur absent and Rhythm/rate is irregular
Respiratory: Respiratory effort normal, Crackles Absent, Rhonchi Absent and Other (Coughs with any deep breath)
Neuro/Psych: AO x 3
Data Reviewed
-
Date of Service: March 05, 2024
Medical Decision Making: Review of Case with other Provider (Dr. Shin, starting IV amiodarone. We mutually agreed to reinitiate anticoagulation. Discussed plan for IV amiodarone with nursing Fiona)
EKG: Other (Telemetry shows fib recurred approximately 1 AM. At times RVR, improved rates currently)
--- NOTE | 2024-03-05 08:02 | W.PN.NEPH.PH ---
Today's Communication / Plan
-
Okay to let last sodium bicarbonate IV fluid bag complete
Creatinine unchanged
Changes in kidney function likely hemodynamically mediated in setting of A-fib
Assessment/Plan
-
Impression:
MARQUISE
CKD 3 (1.5-1.8)
New onset atrial fibrillation with rapid ventricular response
Pneumonia (Bilateral hilar and suprahilar opacities)
Nongapped and gapped metabolic acidosis
BPH
History of DVT
Plan:
MARQUISE/metabolic acidosis
-Status post fall last evening
-Now with Boogie catheter due to high postvoid bladder scan
-Remains in A-fib with hemodynamic lability on amiodarone drip
-Creatinine unchanged to 2.1, likely due to hemodynamic instability
-I suspect prerenal he induced in setting of hypotension with atrial fibrillation with rapid ventricular response
-Agree with alkaline IV fluids provided by primary service for nongap and gap metabolic acidosis
-Check kidney and bladder ultrasound: No hydro or obstructive findings, however he was straight cathed for 2200 cc
-Checked urinalysis fractional secretion of sodium and urine protein to creatinine ratio: 500 mg of protein, trace blood
-Concur with IV fluids in setting of nongap and gap metabolic acidosis
-Check lactate level 1.1
-
-
Date of Service: March 05, 2024
CC / HPI / ROS
-
Chief Complaint:
Acute on chronic kidney disease
Metabolic acidosis
History of Present Illness:
Metabolic acidosis at 19 with alkaline IV fluid
Creatinine unchanged at 2.1
Required straight cath last evening for 2 L
Fall last evening
Hemodynamically labile at time in atrial fibrillation on amiodarone drip
Review of Systems:
Nonoliguric via straight cath now with boogie
Febrile
Labs
-
Labs:
WBC 7.0 10^3/uL (4.8-10.8) 03/05/24 05:53
RBC 3.47 10^6/uL (4.70-6.10) L 03/05/24 05:53
Hgb 10.7 g/dL (13.0-18.0) L 03/05/24 05:53
Hct 30.6 % (39.0-52.0) L 03/05/24 05:53
Plt Count 195 10^3/uL (130-400) 03/05/24 05:53
Sodium 139 mmol/L (135-145) 03/05/24 05:53
Potassium 3.7 mmol/L (3.5-5.1) 03/05/24 05:53
Chloride 109 mmol/L (98-107) H 03/05/24 05:53
Carbon Dioxide 19 mmol/L (22-30) L 03/05/24 05:53
BUN 42 mg/dl (9-20) H 03/05/24 05:53
Creatinine 2.1 mg/dL (0.7-1.3) H 03/05/24 05:53
eGFR 31.23 03/05/24 05:53
Glucose 97 mg/dl (70-99) 03/05/24 05:53
Calcium 7.8 mg/dl (8.4-10.2) L 03/05/24 05:53
Hbd-D-Zppswoancga Pept 18173 pg/ml 03/03/24 14:27
Albumin 2.4 g/dl (3.5-5.0) L 03/05/24 05:53
Physical Exam
-
Vital Signs:
Vital Signs
Temp Pulse Resp BP Pulse Ox
99.7 F 131 30 95/65 92
03/05/24 01:33 03/05/24 05:50 03/05/24 05:50 03/05/24 05:50 03/05/24 05:50
Cardiovascular:: Irregular rate and rhythm
Respiratory:: Bilateral: CTA
Lung Excursion:: Normal
Abdomen:: Nontender and Soft
Bowel Sounds:: Normal
Extremity Edema:: None: Bilateral:
Boogie Catheter: Yes
--- NOTE | 2024-03-05 08:23 | W.PN.UPDATE ---
Update Note
Progress Note Update
I saw and evaluated the patient. I reviewed the resident�s note and agree with findings and plan as documented in the resident�s note.
Currently denies chest pain or shortness of breath.
Gen: NAD, AAOx3.
Eyes: EOMI, PERRLA, no scleral icterus.
Neck: supple.
CV: tachy, irreg/irreg, +S1/S2, no m/r/g.
Resp: remains faint rales left base, otherwise clear to auscultation bilaterally
Abd: remains +BS, soft, NT, ND
Skin: No rashes.
Neuro: CN 2-12 intact, non-focal.
Psych: Normal mood and affect.
CXR: Bilateral parenchymal opacities as described, new since examination in 2018.
Echo: Normal biventricular size and systolic function without regional wall motion abnormality. Mild aortic regurgitation. 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 No prior study available for comparison.
Sepsis (POA) due to acute B/L PNA:
-suspect bacterial at this point
-with persistent hypotension and now fever change abx to Vanco/Zosyn. Check MRSA screen. Check BCxs.
-s/p multiple IVF boluses on 03/04/24. The pt received IVFs with NaHCO3. Case reviewed with Dr. Pinedo today. Will finish current bag of NaHCO3 IVFs then stop IVFs.
-acute PNA appears to be the primary disease process at this time
-c/s ID
MARQUISE and non-AG met acidosis:
-likely due to recent URI (now PNA) and hypotension
-IVFs as above
-check BMP at 1900
-renal following
Elevated LFTs:
-likely due to infection and hypotension
-Continue to trend LFTs (fairly unchanged from yesterday)
-check RUQ U/S
Atrial Fibrillation with Rapid Ventricular Response, new diagnosis:
-converted to SR with cardizem gtt then went back into afib with RVR. Since hypotensive, start Amio gtt.
-start Eliquis. Note fall was mechanical, not worried pt is overt fall risk. Also LUE bleeding has resolved. Also note, drop in Hb is dilutional and due to acute blood loss anemia due to LUE bleeding.
-TSH normal
-echo above
-discussed with cardiology
BPH
-Patient is not on any medications as outpatient
FULL/eliquis/IMU
Total time spent on today's encounter was 53 minutes which included time spent in counseling the patient/family regarding diagnosis and treatment plan as listed above, goals of care, and symptom management. Case was discussed with nursing staff,
specialists, and care coordinators/case management. All labs and imaging personally reviewed by me. Remainder the time spent in detailed review of previous records, lab data, imaging, and other medical provider documentation.
[2024-03-05] MEDS: CORDARONE 518 MG IV (08:43)
--- NOTE | 2024-03-05 08:53 | PHA.VAN.IN ---
Assessment
- Assessment
Renal Function: Appears elevated from baseline
Maximum Temperature: 101.01 - on 03/04 23:21
Concomitant Antimicrobials: pip/tazo
Plan
- Plan
Initial / Loading Dose: 2000 mg load dose ( (24 mg/kg)
Maintenance Regimen: dose by random level
Monitoring: random level AM 03/06
Pharmacokinetics Vancomycin I
- -
Patient Age: 78
Patient Sex: Male
Vancomycin Day #: 1
Indication: Bacteremia
Requesting Provider: Aleida
Height / Weight:
Height 6 ft
Actual Weight 82.4 kg
Pertinent Past Medical History: MARQUISE on CKDIII
- Vital Signs / Lab Results
Temp Pulse Resp BP Pulse Ox
99.7 F 131 30 95/65 92
03/05/24 01:33 03/05/24 05:50 03/05/24 05:50 03/05/24 05:50 03/05/24 05:50
Lab Results - Hematology
03/03/24 03/04/24 03/05/24
14:27 03:47 05:53
WBC 8.7 8.9 7.0
Lab Results - Chemistry
03/03/24 03/04/24 03/04/24
15:32 03:47 19:19
BUN 35 H 41 H 43 H
Creatinine 1.8 H 2.4 H 2.1 H
Estimated Creat Clear 36 27 31
Albumin 3.1 L 2.9 L
03/05/24
05:53
BUN 42 H
Creatinine 2.1 H
Estimated Creat Clear 31
Albumin 2.4 L
03/03/24
14:27
Lactic Acid 1.1
Lab Results - Urine
03/04/24
13:32
Urine Nitrite Negative
Ur Leukocyte Esterase Negative
Urine WBC 3-5
Ur Squamous Epith Cells 3-5
Urine Bacteria Moderate A
--- NOTE | 2024-03-05 09:13 | W.PN.HOSP.TC ---
Today's Communication/Plan
-
Start Eliquis 2.5 twice daily
Continue amio drip
Abdominal ultrasound
Trend BPs-IV fluid as needed
Check blood cultures
Switched azithromycin to Zosyn-continue Rocephin
Assessment / Plan
Assessment / Plan
78-year-old male past medical history of BPH, right upper extremity DVT in 2018 sent in from urgent care after he went in for upper respiratory symptoms ongoing for a week.� Found to be in new onset atrial fibrillation with RVR and sent into the
emergency room.Cardizem drip and heparin drip started in ED.
Chest x-ray (03/03):
As per report .there are fairly confluent regions of parenchymal opacity in the left hilar and suprahilar region as well as the right suprahilar, hilar, and infrahilar region, central predominance. Additionally, there is patchy parenchymal opacity
within the rest of both lungs. In the right lung particularly, some of these regions have a somewhat nodular configuration.
All these findings are new since examination in 2018.One consideration would be bilateral pneumonia. Neoplastic disease or a combination of neoplasia and pneumonia must also be considered, and continued close follow-up is advised. The pattern does
not appear to be highly suggestive of a pulmonary edema pattern. No significant pleural effusion is evident.
#New onset A-fib with RVR
-[id number]
-Initially spontaneously converted back to sinus rhythm
-Back in A-fib rhythm overnight-started Amio drip
-Started Eliquis 2.5 mg twice daily this a.m.
-ProBNP > 32626
-Echo (03/03):Normal biventricular size and systolic function without regional wall motion abnormality. Mild aortic regurgitation. LV ejection fraction is 50-55%. Normal diastolic function.
-TSH WNL
-Appreciate cardiology
# Acute on chronic kidney injury
- High anion gap metabolic acidosis- Anion gap now closed
- Creatinine improving but still remains high-most likely
- Patient received minimum 3.5 lits IV fluid over the past 24 hours
- MARQUISE might be in the setting of PNA
- Appreciate nephrology-FeNa and urine protein/creatinine ratio within normal limits
- Renal ultrasound-Large volume bladder with diffusely trabeculated bladder wall. Large postvoid bladder residual. Bilateral ureteral jets are demonstrated.
- Trend BPs
# Possible B/L Pneumonia
- Switched Zithromax to Zosyn- Cont Rocephin
- Receiving IV fluids
- Afebrile
- No leukocytosis
- Lactic acid WNL- Procal elevated
- Crackles improved
- Will order chest CT for further evaluation of possible mass in the following days
- Blood cultures sent
# Elevated LFTs
- Might be reactive in the setting of underlying infection or due to CHF
- Will cont to monitor LFT
- RUQ U/S today-unremarkable
#Suspicious History of DVT right upper extremity
- Was not placed on any anti-coagulation at that time
# Excessive bleeding from IV line
-Resolved
-Started Eliquis 2.5 twice daily
# Fall episode on 03/05
-Patient denies feeling lightheaded/dizzy
-Mentions he slipped on his foot
-No apparent injuries to body or head-physical exam normal
#History of BPH
-Patient was noted to retain urine (2200cc bladder scan)
-Baez placed draining ritesh urine
Anticipated Discharge: 24 - 48 hours
Subjective/Interval History
-
Date of Service: March 05, 2024
Denies feeling any palpitations or chest pain. Denies any shortness of breath or trouble breathing. Complains of back pain due to prolonged time of lying in bed.
Mentions feeling thirsty.
Objective Data
-
Labs:
Laboratory Results
03/05/24 03/05/24 03/05/24
05:53 08:17 19:00
WBC 7.0
Hgb 10.7 L
Hct 30.6 L
Plt Count 195
Sodium 139 Pending Pending
Potassium 3.7 Pending Pending
Chloride 109 H Pending Pending
Carbon Dioxide 19 L Pending Pending
BUN 42 H Pending Pending
Creatinine 2.1 H Pending Pending
Glucose 97 Pending Pending
Calcium 7.8 L Pending Pending
Total Bilirubin 3.7 H
AST 80 H
ALT 68 H
Alkaline Phosphatase 590 H
Vital Signs:
Vital Signs
Temp Pulse Resp BP Pulse Ox
98.2 F 131 30 95/65 92
03/05/24 08:00 03/05/24 05:50 03/05/24 05:50 03/05/24 05:50 03/05/24 05:50
I&O
03/04/24 03/05/24 03/06/24
06:59 06:59 06:59
Intake Total 80 / 80 2036 / 2036
Output Total 2450 / 2450
Balance 80 / 80 -413 / -413
Review of Systems
-
History Source: Patient
All other systems: Reviewed and negative
Constitutional: Reports Other ( feeling thirsty)
Physical Exam
-
General: Well Developed, Comfortable and Conversant
HEENT: Normocephalic, Atraumatic, Anicteric and Other (Dry mucous membranes)
Respiratory: Crackles (Crackles on left side has improved) and Non Labored Respirations
Cardiac: S1/S2, Irregular Rhythm (A-fib) and Tachycardic
GI: Soft, Nontender and Distended
Musculoskeletal: No Clubbing, No Cyanosis and No Edema
Skin: Warm and Dry
Neuro: Awake, Alert, Oriented and AO x 3
Psych: Calm
[2024-03-05] MEDS: ZOSYN 50 IV (10:01)
[2024-03-05] MEDS: ELIQUIS 2.5 MG PO ×2 (10:01→19:50)
[2024-03-05] MEDS: VANCOCIN 540 MG IV (11:03)
[2024-03-05 11:35] LABS: Blood Urea Nitrogen 42 mg/dl (9-20); Calcium 7.6 mg/dl (8.4-10.2); Carbon Dioxide 17 mmol/L (22-30); Chloride 108 mmol/L (98-107); Estimated Creatinine Clearance 34 ml/min; Glucose 162 mg/dl (70-99); Potassium 3.7 mmol/L (3.5-5.1); Sodium 137 mmol/L (135-145); eGFR 35.22
--- NOTE | 2024-03-05 12:18 | CM ---
Pt seen bedside. Initial assessment completed
Pt lives w/ spouse in a 2[facility]- no steps
Pt is independent, denies DME for ambulating or daily functioning
Denies SNF/VN/PT hx
Address, point of contact and insurance verified
PCP: Dr. Lu
Pharmacy: [facility]
Started Eliquis today and IV fluids per chart
Cardiology and nephrology consulted
Plan: CM will cont to follow hospital course for d/c planning
--- NOTE | 2024-03-05 14:09 | CON.ID ---
Consultation
-
Date/Time Consultation Requested: March 05, 2024 1200
Date/Time Consultation Performed: March 05, 2024 1410
Requesting Provider: Dr. Louis Neff
Performing Provider: Dr. Janie Bobo
Reason for Consultation: Fever and hypotension
Chief Complaint / Past History
Chief Complaint
Cough
History of Present Illness
78-year-old male with history of BPH who was sent to the ER from urgent care on March 03 due to A-fib with RVR. Patient reports he started feeling unwell last week on February 28 with dry cough. Cough nonproductive. Wednesday cough
somewhat improved. the cough returned and was worse. He tested negative for COVID at home. No fevers or chills. No headache or rhinorrhea. No sinus congestion. He went to the urgent care on March 03 and noted to have A-fib with RVR
and therefore sent to the ER. Patient noted to have elevated LFTs, acute on chronic kidney failure. Chest x-ray shows bilateral pulmonary opacities. He was on ceftriaxone and azithromycin. Last night spiked a fever 101. Antibiotics broadened to
vancomycin and Zosyn today. Patient denies ill contacts. He has mild sore throat due to the coughing. He is up-to-date with his influenza and COVID-19 vaccine. Has not received the RSV vaccine. No travel history. No pets.
Past History
Additional Past Medical History:
BPH
RUE DVT 2018
Appendectomy
Allergy History:
No Known Allergies Allergy (Verified 05/28/16 09:49)
Medications Reviewed: Yes
Current Antibiotics:
s/p ceftriaxone, azithromycin x 2d
Vancomycin d1
Zosyn d1
Social History
Tobacco: Non-Smoker
Alcohol: Occasional
Drug: None
Personal:
Family History
Family History: Not Pertinent
Review of Systems
Review of Systems
General: Change in Appetite; Negative Fever or Chills
HEENT: Negative Sinus Problems or Headache
Cardiovascular: Negative Chest Pain, Dyspnea or Edema
Respiratory: Cough; Negative Dyspnea or Sputum Production
Gasteroenterology: Negative Nausea, Vomiting or Diarrhea
Genital / Urological: Negative Dysuria or Flank Pain
Musculoskeletal: Negative Joint Swelling or Arthralgias
Skin / Hair / Nails: Negative Rash
Neurological: Negative Dizziness
All systems: All other systems were reviewed and were negative
Vital Signs
Temp Pulse Resp BP Pulse Ox
98.1 F 136 26 94/61 90
03/05/24 12:30 03/05/24 14:00 03/05/24 14:00 03/05/24 13:30 03/05/24 13:00
Selected Entries
03/04/24
23:21
Temp 101.0 F H
Physical Exam
Physical Exam
Constitutional: No Acute Distress and Comfortable
Eyes: No Conjunctival Hemorrhage and Other (mild icterus)
Pharynx: Benign
Cardiovascular: Irregular Rate and S1/S2
Pulmonary: Rales (bilateral)
Gastrointestinal: Soft, Non Tender, Non Distended and Normal Bowel Sounds
Genito-Urinary: Boogie and Clear Urine; Negative CVA Tenderness
Extremities: Negative Edema
Musculoskeletal: Negative Joint Swelling, Joint Effusion or Spinal Tenderness
Neurological: AO x 3
Lab / Diagnostic Study Results
03/05/24 05:53
Abs Immat Gran (auto) 0.1 10^3/uL (0-0.05) H 03/03/24 14:27
Absolute Neuts (auto) 7.8 10^3/uL (1.4-6.5) H 03/03/24 14:27
Absolute Lymphs (auto) 0.4 10^3/uL (1.2-3.4) L 03/03/24 14:27
Absolute Monos (auto) 0.4 10^3/uL (0.1-0.6) 03/03/24 14:27
Absolute Basos (auto) 0.0 10^3/uL (0-0.2) 03/03/24 14:27
Immature Gran % 0.7 % (0-0.5) H 03/03/24 14:27
Neutrophils % 89.5 % (42.2-75.2) H 03/03/24 14:27
Lymphocytes % 4.7 % (20.5-51.1) L 03/03/24 14:27
Monocytes % 4.9 % (1.7-9.3) 03/03/24 14:27
Eosinophils % 0.0 % (0-6) 03/03/24 14:27
Basophils % 0.2 % (0-2) 03/03/24 14:27
PT 16.9 Sec (11.4-14.6) H 03/03/24 14:27
INR 1.34 03/03/24 14:27
Lactic Acid 1.1 mmol/L (0.7-2.0) 03/03/24 14:27
Procalcitonin 2.00 ng/ml (0.0-0.25) H 03/03/24 21:17
Urine WBC 3-5 /HPF (0-5) 03/04/24 13:32
Ur Squamous Epith Cells 3-5 /LPF (Few) 03/04/24 13:32
Microbiology Results
Micro:
03/05/24 11:10 MRSA Screen - Pending
Nose
03/05/24 11:10 Blood Culture - Pending
Blood/Venous
03/03/24 CXR: Bilateral parenchymal opacities
03/04/24 Renal US: Large volume bladder with diffusely trabeculated bladder wall. Large postvoid bladder residual. Bilateral ureteral jets are demonstrated.
03/05/24 Abd US: No sonographic evidence of acute cholecystitis, cholelithiasis or biliary ductal dilation.
Assessment / Plan
# Bilateral PNA/CAP - CXR bilateral central opacities, personally reviewed
# Non-productive cough
# Fever
# Hypotension
# Elevated LFT's - abd US unremarkable
# MARQUISE
# new onset Afib with RVR
# BPH/urinary retention - boogie placed
- Probable viral PNA
COVID neg
Check Influenza A/B, RSV PCR
- Ordered urine legionella and strep pneumo antigens
- Follow blood cx;s
- DC Vanco/Zosyn
- Resume ceftriaxone. Start po doxycycline.
-Trend temps, BP
[2024-03-05] MEDS: ZOSYN IV (15:11)
[2024-03-05] MEDS: STERILE WATER FOR INJECTION 20 ML IV (16:49)
[2024-03-05] MEDS: ROCEPHIN 2000 MG IV (16:49)
--- NOTE | 2024-03-05 19:30 | PTCARENOTE ---
received pt from day shift. Pt aaox3. afib on the monitor, hr 116. Pt OOB to bathroom x1 with RW. amio gtt infusing; sodium bicarb infusing (see MAR). Pt resting in bed with bed alarm on and call ibarra in reach.
--- NOTE | 2024-03-05 19:32 | PTCARENOTE ---
Assumed care of patient at 0700. Patient in afib with RVR. Hypotensive. Fluid bolus given by [employer] shift lead RN. Cardiology notified. Orders for Amio bolus and drip placed. BP responsive. Patient started on Eliquis. Repeat BMP sent, in addition to blood
cultures. ABD US completed. Patient oob in chair from 1145 until 1445. Assist x1RW. Ambulated to bathroom for BM x2. Ringing appropriately. Patient verbalizing understanding of fall risk and high bleeding risks with addition of Eliquis.
[2024-03-05] MEDS: VIBRAMYCIN 100 MG PO (19:50)
[2024-03-05] MEDS: TYLENOL 650 MG PO (20:42)
[2024-03-05 20:50] LABS: Blood Urea Nitrogen 41 mg/dl (9-20); Calcium 7.8 mg/dl (8.4-10.2); Carbon Dioxide 23 mmol/L (22-30); Chloride 106 mmol/L (98-107); Estimated Creatinine Clearance 31 ml/min; Glucose 136 mg/dl (70-99); Potassium 3.5 mmol/L (3.5-5.1); Sodium 137 mmol/L (135-145); eGFR 31.23
--- NOTE | 2024-03-05 23:08 | PTCARENOTE ---
Pt c/o 6/10 cramping in his left shoulder and upper left back that began to radiate up the left side of his neck. Denies any chest pain. afib on monitor, hr currently 116. bp 102/66 (76). amio gtt infusing. Completed EKG and does not appear to be
any changes compared to previous EKG. MIKE Vazquez notified. received Rx for lidocaine patch for shoulder. This RN admin PRN Tylenol to pt. When this RN reassessed pain after Tylenol admin, it decreased to 2/10. Pt resting in bed, bed alarm on, and
call ibarra in reach.
[2024-03-06] VITALS (39 sets, daily range): BP systolic 85–114; BP diastolic 63–93; BMI 26.0
[2024-03-06] MEDS: NSS 500 IV (00:12)
[2024-03-06] MEDS: LIDOCAINE 4% PATCH 1 PATCH TOPICAL (00:19)
--- NOTE | 2024-03-06 00:38 | PTCARENOTE ---
Pt bp 81/63. amio gtt stopped. Notified MIKE Vazquez. NSS bolus Rx'd and infusing at 125 mL/hr.
[2024-03-06] MEDS: CORDARONE 518 MG IV (02:52)
--- NOTE | 2024-03-06 03:52 | PTCARENOTE ---
Notified MIKE Vazquez that pt's bp 113/77. Afib on monitor, hr 110-130s. ASSEMBLY INSPECTOR instructed this RN to restart amio gtt at previous rate. gtt infusing at 16.7 mL/hr (see worklist).
[2024-03-06 04:10] LABS: Blood Urea Nitrogen 43 mg/dl (9-20); Calcium 7.5 mg/dl (8.4-10.2); Carbon Dioxide 19 mmol/L (22-30); Chloride 109 mmol/L (98-107); Estimated Creatinine Clearance 32 ml/min; Glucose 101 mg/dl (70-99); Potassium 3.5 mmol/L (3.5-5.1); Sodium 138 mmol/L (135-145); eGFR 33.12
[2024-03-06 05:36] LABS: Vancomycin Random 12.5 ug/ml
--- NOTE | 2024-03-06 08:06 | W.PN.CD ---
Addendum entered and electronically signed by Lonny Sinha MD 03/06/24 17:03:
Converted to SR on amio gtt, will stop amio gtt, start amio 400 bid for about 15 days, then 200 daily for total duration of 45 days and then stop amiodarone.
His AF is likely provoked from his hypoxic RF and PNA.
Original Note:
Today's Communication / Plan
-
Cont amio for now
If HRs remain elevated despite amio, BP tenuous, can consider short duration digoxin
Impression / Plan
-
A-fib with RVR.
-Initially back into sinus rhythm but A-fib has recurred overnight.
-With this, hemodynamics are tenuous, will start amiodarone to establish rhythm control, as we have seen sinus yesterday.
-will have to closely monitor lfts
-[id number] 2 (a age greater than 75)--start eliquis
-
Sepsis likely 2/2 to PNA (abnormal cxr, cough, elevated procal)
-bp responding to IVF
-treatement as per medicine
Renal insufficiency creatinine- acute on chronic with associated acidosis.
-renal following
-likely 2/2 to hypotension
-will try to rhythm control to help with Hemodynamics
.
elevated LFTs- evaluation per medicine
-monitor now that we need amiodarone
.
History of DVT right upper extremity per history patient denies ever being on anticoagulation there are venous ultrasounds with nonocclusive thrombus as noted above which subsequently resolved on follow-up studies.
Subjective:
He is feeling ok, breathing improved, continues not to notice AF. No palpitations or chest pain. Does not feel overtly short of breath. Lying completely flat breathing comfortably.
TTE: CONCLUSIONS
Normal biventricular size and systolic function without regional wall motion
abnormality.
Mild aortic regurgitation.
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
No prior study available for comparison.
Physical Exam
Vital Signs/Labs
Vital Signs
Temp Pulse Resp BP Pulse Ox
98.1 F 112 29 98/78 93
03/06/24 03:36 03/06/24 05:00 03/06/24 05:00 03/06/24 05:00 03/06/24 05:00
03/05/24 03/06/24 03/07/24
06:59 06:59 06:59
Actual Weight 181 lb 10.574 oz 191 lb 9.307 oz
03/05/24 05:53
PT 16.9 Sec (11.4-14.6) H 03/03/24 14:27
INR 1.34 03/03/24 14:27
APTT Cancelled 03/04/24 11:00
TSH 0.69 uIU/ml (0.47-4.68) 03/03/24 15:32
03/03/24
14:27
[id number] Pept 12900
Physical Exam
Constitutional: No acute distress
EENT: Anicteric
Cardiovascular: Pedal edema is absent and Rhythm/rate is irregular
Respiratory: Respiratory effort normal and Lungs clear to auscul.
GI: Soft
Neuro/Psych: AO x 3
Data Reviewed
-
Date of Service: March 06, 2024
EKG: Tracing Personally Visualized and interpreted (af rvr)
Echo: Report Reviewed by me
Labs: Labs Reviewed by me
[2024-03-06] MEDS: VIBRAMYCIN 100 MG PO ×2 (08:50→20:23)
[2024-03-06] MEDS: ELIQUIS 2.5 MG PO ×2 (08:50→20:23)
[2024-03-06 08:55] LABS: ALT (SGPT) 89 U/L (0-50); AST (SGOT) 134 U/L (17-59); Albumin 2.5 g/dl (3.5-5.0); Alkaline Phosphatase 622 U/L (38-126); Blood Urea Nitrogen 42 mg/dl (9-20); Calcium 7.5 mg/dl (8.4-10.2); Carbon Dioxide 23 mmol/L (22-30); Chloride 104 mmol/L (98-107); Estimated Creatinine Clearance 32 ml/min; Glucose 227 mg/dl (70-99); Potassium 3.5 mmol/L (3.5-5.1); Sodium 137 mmol/L (135-145); Total Bilirubin 3.7 mg/dl (0.2-1.3); Total Protein 5.4 g/dl (6.3-8.2); eGFR 33.12
--- NOTE | 2024-03-06 09:54 | W.PN.NEPH.PH ---
Today's Communication / Plan
-
Nursing staff
Assessment/Plan
-
Impression:
MARQUISE
CKD 3 (1.5-1.8)
New onset atrial fibrillation with rapid ventricular response= cardiology note
Pneumonia (Bilateral hilar and suprahilar opacities)= infectious disease noted
Nongapped and gapped metabolic acidosis= resolved
BPH
History of DVT
Plan:
MARQUISE/metabolic acidosis
-Status post fall last evening
-Now with Baez catheter due to high postvoid bladder scan/continue
-Remains in A-fib with hemodynamic lability on amiodarone drip status post IV fluid bolus last night/cardiology noted
-Check kidney and bladder ultrasound: No hydro or obstructive findings, however he was straight cathed for 2200 cc
Continue antibiotics renal dose all medications for appropriate GFR
Renal function stable with a creatinine of 2 today
Creatinine peaked at 2.4
Baseline creatinine 1.8. Creatinine per records 1.5 in 2021= does not follow with nephrology outpatient
Continue to monitor urine output and hemodynamics as the acuity is likely secondary to hemodynamic with a component of urinary retention
No changes made today discussed with his medical nurse
-
-
Date of Service: March 06, 2024
CC / HPI / ROS
-
Chief Complaint:
Acute on chronic kidney disease
Metabolic acidosis
New onset A-fib
History of Present Illness:
IV bolus of fluid last night with episode of hypotension
Remains in A-fib on amiodarone
Baez catheter remains nonoliguric
Review of Systems:
No chest pain or shortness of breath
States he feels weak
Labs
-
Labs:
WBC 7.0 10^3/uL (4.8-10.8) 03/05/24 05:53
RBC 3.47 10^6/uL (4.70-6.10) L 03/05/24 05:53
Hgb 10.7 g/dL (13.0-18.0) L 03/05/24 05:53
Hct 30.6 % (39.0-52.0) L 03/05/24 05:53
Plt Count 195 10^3/uL (130-400) 03/05/24 05:53
Sodium 137 mmol/L (135-145) 03/06/24 08:32
Potassium 3.5 mmol/L (3.5-5.1) 03/06/24 08:32
Chloride 104 mmol/L (98-107) 03/06/24 08:32
Carbon Dioxide 23 mmol/L (22-30) 03/06/24 08:32
BUN 42 mg/dl (9-20) H 03/06/24 08:32
Creatinine 2.0 mg/dL (0.7-1.3) H 03/06/24 08:32
eGFR 33.12 03/06/24 08:32
Glucose 227 mg/dl (70-99) H 03/06/24 08:32
Calcium 7.5 mg/dl (8.4-10.2) L 03/06/24 08:32
Wwh-Y-Yaqcsoedgfp Pept 70602 pg/ml 03/03/24 14:27
Albumin 2.5 g/dl (3.5-5.0) L 03/06/24 08:32
Physical Exam
-
Vital Signs:
Vital Signs
Temp Pulse Resp BP Pulse Ox
98.2 F 128 26 107/78 87
03/06/24 07:06 03/06/24 09:00 03/06/24 09:00 03/06/24 09:00 03/06/24 09:00
Cardiovascular:: Irregular rate and rhythm
Respiratory:: Bilateral: Coarse
Lung Excursion:: Normal
Abdomen:: Soft
Bowel Sounds:: Normal
Extremity Edema:: None: Bilateral:
Baez Catheter: Yes
--- NOTE | 2024-03-06 10:34 | W.PN.HOSP.TC ---
Addendum entered and electronically signed by Carlos Obrien MD 03/06/24 21:36:
Attending Addendum-
I saw and evaluated the patient. I reviewed the resident�s note and agree with findings and plan as documented in the resident�s note. Sub: feels sob and weak today. Bolus overnight due to hypotension. Denies CP palps. 'can you order me a new
heart?' Full 12 point ROS reviewed and negative except as documented Exam: Vitals reviewed in chart GEN-NAD heart tachycardic irregular lungs tachypneic dry crackles b/l UL abd soft LE no edema boogie in place with ritesh concentrated urine
# Sepsis (POA) due to acute B/L PNA:
- likely bacterial
- blood cx NGTD
- cont doxy and Rocephin
- ID on board
- check CT chest
# MARQUISE on CKD 3b
-likely due to hypotension possibly post renal
-baseline @ 1.6
-renal following
-check Fena
-cont boogie
# Elevated LFTs
-likely due to infection and hypotension
-increased
-repeat in am
-RUQ- WNL
# Atrial Fibrillation with Rapid Ventricular Response, new diagnosis:
- unstable
- cont amio gtt, possible CV if continues and sxs persist
- cont Eliquis
- cont care in IMU
- cardiology on board
# BPH with urinary retention
- cont boogie for now
- encourage ambulation
- start flomax
FULL/eliquis/IMU
Time spent coordinating care, review of plan of care with resident, personally reviewed records in EMR, med rec, consults, notes, labs, radiology, d/w nursing and granddaughter� 59 mins
Original Note:
Today's Communication/Plan
-
Patient to continue Amiodarone, continue monitoring breathing. Patient to undergo CT Chest due to continued shortness of breath and pleural effusion seen on CXR. Will check Urine sodium/creatinine.
Assessment / Plan
Assessment / Plan
Assessment: 78 year old male with a history of BPH and right upper extremity DVT came to the office with ongoing upper respiratory symptoms for a week. Patient was found to have new onset Atrial Fibrillation with RVR alongside probably bilateral
pneumonia. Patient was started on Cardizem and antibiotics and is also being followed by nephrology for ongoing management of his Acute on chronic kidney injury.
Chest X-ray (03/06): Slightly hypoinflated compared to most recent radiograph. There are are patchy parenchymal airspace opacities throughout both lungs, slightly increasing in the left lower lung. As described previously, a leading consideration is
bilateral pneumonia. Neoplastic disease is also a possibility, or a combination of neoplastic disease and pneumonia.
#New onset A-fib with RVR
-[id number]
-Continue Amiodarone Drip, Heart Rate should come down with treatment of pneumonia
-Eliquis 2.5 mg twice daily continue
-Echo (03/03):Normal biventricular size and systolic function without regional wall motion abnormality. Mild aortic regurgitation. LV ejection fraction is 50-55%. Normal diastolic function.
-Appreciate cardiology input
# Acute on chronic kidney injury
- High anion gap metabolic acidosis- Anion gap now closed
- Creatinine at baseline (around 2.0)
- No longer on IVF
- MARQUISE was probably due to Pneumonia but will continue monitoring BMP
- Appreciate nephrology-FeNa and urine protein/creatinine ratio within normal limits
- Renal ultrasound-Large volume bladder with diffusely trabeculated bladder wall. Large postvoid bladder residual. Bilateral ureteral jets are demonstrated.
- Trend BPs
- Appreciate Nephrology
- No changes today as per Nephro
- Will get Urine Sodium/Creatinine levels
# Probable B/L Pneumonia
- Continue Rocephin and Doxycycline
- Afebrile
- No leukocytosis
- Procal elevated on 03/03
- Crackles improved but still audible
- Order Chest CT due to pleural effusion and changes seen on CXR
- Awaiting Blood Culture Results
# Elevated LFTs
-Transient Transaminitis probably due to infection
-Will continue to monitor and trend LFTs
-Consult GI if continues to stay elevated
#History of BPH
-Patient has Boogie drain. Complained of some Suprapubic tenderness that goes away with urination.
-Continue current management as per Nephrology
-On no medications currently
-Continue Boogie for now
Full Code- DVT
Prophylaxis:Eliquis
Anticipated Discharge: > 48 hours
Subjective/Interval History
-
Date of Service: March 06, 2024
Patient has been feeling well over night. Does not experience any heart palpitations or any chest pain at this time. Has some suprapubic tenderness that resolves with urination. His left shoulder pain has been relieved with lidocaine patches as well.
Objective Data
-
Labs:
Laboratory Results
03/06/24 03/06/24
03:31 08:32
Sodium 138 137
Potassium 3.5 3.5
Chloride 109 H 104
Carbon Dioxide 19 L 23
BUN 43 H 42 H
Creatinine 2.0 H 2.0 H
Glucose 101 H 227 H
Calcium 7.5 L 7.5 L
Total Bilirubin 3.7 H
AST 134 H
ALT 89 H
Alkaline Phosphatase 622 H
Vital Signs:
Vital Signs
Temp Pulse Resp BP Pulse Ox
98.2 F 128 26 107/78 87
03/06/24 07:06 03/06/24 09:00 03/06/24 09:00 03/06/24 09:00 03/06/24 09:00
I&O
03/05/24 03/06/24 03/07/24
06:59 06:59 06:59
Intake Total 2036 / 2036 1919.6 / 1919.6
Output Total 2450 / 2450 1675 / 1675
Balance -413 / -413 244.6 / 244.6
Review of Systems
-
History Source: Patient
Constitutional: Reports No Symptoms
EENT: Reports No Symptoms Reported
Respiratory: Reports Cough and Wheezing
Cardiac: Denies Chest Pain, Diaphoresis, Palpitations or Syncope
Abdomen/GI: Reports Abdominal Pain (Mild Suprapubic Pain); Denies Nausea or Vomiting
Genitourinary: Denies Dysuria, Frequency, Flank Pain, Difficulty Voiding or Dark Urine
Musculoskeletal: Reports Joint Pain (Left shoulder)
Skin: Reports No Symptoms
Neuro: Reports No Symptoms
Physical Exam
-
General: Well Developed, Well Nourished and Respiratory Distress
Respiratory: Rales and Crackles
Cardiac: S1/S2 and Irregular Rhythm
GI: Soft, Nondistended and Tender (Very mild suprapubic tenderness)
Genito-urinary: Boogie
Musculoskeletal: No Clubbing, No Cyanosis and No Edema
Skin: Warm and Dry
Neuro: Awake, Alert, Oriented and AO x 3
Psych: Calm and Intact Judgement/Insight
Data Reviewed
-
Diagnostic Radiology: Report Reviewed by me, Discussed with Physician, Discussed with Nurse and Discussed with Patient
CT Scan: Report Reviewed by me
Ultrasound: Report Reviewed by me
Labs: Labs Reviewed by me, Discussed with Physician, Discussed with Nurse and Discussed with Patient
--- NOTE | 2024-03-06 10:48 | PTCARENOTE ---
Pt's HR remains elevated despite Amio drip. Cardiology and medical team aware. BP soft, currently 99/73. remains tachypnic. Pt added granddaughter, Hali to contact list. Hali reports that her GM, Colette is also confused as it pt, which is his
baseline. She reports that his spouse is unable to make any decision and Hali going to assist.
--- NOTE | 2024-03-06 11:55 | W.PN.ID1 ---
Date of Service
Date of Service: March 06, 2024
Today's Communication
See below.
Assessment / Plan
# Bilateral PNA/CAP - increased oxygen requirement today
# Non-productive cough
# Fever - resolved
# Hypotension - improved
# Elevated LFT's - abd US unremarkable
# MARQUISE stable
# new onset Afib with RVR
# BPH/urinary retention - boogie placed
- COVID neg, Influenza A/B neg , RSV PCR negative
- urine legionella and strep pneumo antigens negative
- Blood cx negative to date
-MRSA screen pending
- Check respiratory viral panel.
- Continue ceftriaxone and po doxycycline.
- Follow O2 status
Chief Complaint
-: Pneumonia
Subjective / Review of Systems
Dry cough is the same.
More SOB today.
Vital Signs / Physical Exam
Vital Signs
Vital Signs
Temp Pulse Resp BP Pulse Ox
98.2 F 128 26 107/78 87
03/06/24 07:06 03/06/24 09:00 03/06/24 09:00 03/06/24 09:00 03/06/24 09:00
Physical Exam
Constitutional: Comfortable
Eyes: No Conjunctival Hemorrhage and Sclera Anicteric
Cardiovascular: Irregular Rate and Other (tachycardic)
Pulmonary: Rales (bilateral crackles)
Gastrointestinal: Soft, Non Tender, Non Distended and Normal Bowel Sounds
Genito-Urinary: Negative CVA Tenderness
Extremities: Negative Edema
Neurological: AO x 3
Objective Data
Lab Data
Lab Results
03/05/24 05:53
03/06/24 08:32
PT 16.9 Sec (11.4-14.6) H 03/03/24 14:27
INR 1.34 03/03/24 14:27
APTT Cancelled 03/04/24 11:00
Estimated Creat Clear 32 ml/min 03/06/24 08:32
Lactic Acid 1.1 mmol/L (0.7-2.0) 03/03/24 14:27
Total Bilirubin 3.7 mg/dl (0.2-1.3) H 03/06/24 08:32
AST 134 U/L (17-59) H 03/06/24 08:32
ALT 89 U/L (0-50) H 03/06/24 08:32
Alkaline Phosphatase 622 U/L (38-126) H 03/06/24 08:32
Most recent labs reviewed.
Micro Results:
03/05/24 11:10 Blood Culture - Preliminary
Blood/Venous No Growth in 24 hours- Final report to follow
03/05/24 15:48 Legionella Urinary Antigen - Final
Urine Negative for Legionella pneumophila Serogroup 1 antigen.
A negative result does not rule out the possiblity of
Legionella infection due to other serogroups or species of
Legionella. Clinical correlation is recommended.
Streptococcus pneumoniae Antigen (M - Final
Negative for Streptococcus pneumoniae antigen.
A negative result does not exclude infection with
Streptococcus pneumoniae. Clinical correlation is
recommended.
03/05/24 15:48 Blood Culture - Pending
Blood/Venous
03/05/24 15:48 Respiratory Syncytial Virus Culture - Final
Nasal Swab Negative for Respiratory Syncytial Virus.
A false negative result may be obtained with a specimen
collected early in the acute phase. If symptoms persist, a
new specimen should be tested.
03/05/24 15:48 Influenza Types A & B (BHARAT) - Final
Nasal Swab Negative for Influenza A & B, NAAT
Negative results must be combined with clinical observations
and patient history.
Nucleic Acid Amplification test (NAAT)performed on the
[employer] platform.
03/05/24 11:10 MRSA Screen - Pending
Nose
03/03/24 CXR: Bilateral parenchymal opacities
03/04/24 Renal US: Large volume bladder with diffusely trabeculated bladder wall. Large postvoid bladder residual. Bilateral ureteral jets are demonstrated.
03/05/24 Abd US: No sonographic evidence of acute cholecystitis, cholelithiasis or biliary ductal dilation.
03/06/24 CXR: The lungs appear slightly hypoinflated compared to most recent radiograph. There is also new blunting of the left lateral costophrenic angle suggesting a small left pleural effusion. There are are patchy parenchymal airspace opacities
throughout both lungs, slightly increasing in the left lower lung. As described previously, a leading consideration is bilateral pneumonia. Neoplastic disease is also a possibility, or a combination of neoplastic disease and pneumonia.
--- NOTE | 2024-03-06 15:44 | CM ---
Patient fell yesterday. Room air. CT Chest today. Receiving IV Amiodarone, IV Abx.
Patient will benefit from PT/OT Evals once less medically acute---> message to Resident Radha Mackey.
Plan follow up after seen by PT/OT.
--- NOTE | 2024-03-06 17:01 | W.PN.UPDATE ---
Update Note
Progress Note Update
CT Chest report showed:
Small bilateral pleural effusions
Confluent areas of parenchymal airspace opacity within both lungs, central predominance, with air bronchograms but no evidence for bronchial narrowing or obstruction. This could represent pneumonia. Somewhat unusual appearance, consideration could
be given to chronic parenchymal processes such as granulomatosis with polyangiitis, sarcoidosis, or cryptogenic organizing pneumonia.
Posterior right upper lobe, there is a 5 mm calcified granuloma
Multiple small nodular densities scattered throughout both lungs. Given the multiple nodules, pulmonary metastatic disease remains a consideration, although these nodular opacities could be associated with acute or chronic infection/inflammation.
As warranted, consideration could be given to bronchoscopy and lung biopsy.
Will consult Pulmonary/Oncology if needed for potential biopsy.
[2024-03-06] MEDS: STERILE WATER FOR INJECTION 20 ML IV (17:11)
[2024-03-06] MEDS: ROCEPHIN 2000 MG IV (17:11)
--- NOTE | 2024-03-06 17:41 | PTCARENOTE ---
Pt converted to NSR on tele, confirmed with EKG. Notified Cards. Rishi Seay IV Amio with plan to start PO amio tongiht. Pt also started on accucheck and sliding scale insulin. Education provided.
[2024-03-06 17:48] LABS: Glucose - Point of Care 142 mg/dl (70-99)
--- NOTE | 2024-03-06 18:14 | VATNOTE ---
PICC attempted on R arm. Wire unable to be thread through 2 separate vessels. Attempt started on L arm, but it was noted that pt was in sinus rhythm. Primary RN spoke to MD, and EKG ordered. EKG showed NSR, so PICC is on hold. Will continue to
monitor for need.
[2024-03-06] MEDS: PACERONE 400 MG PO (20:23)
[2024-03-06 21:48] LABS: Glucose - Point of Care 93 mg/dl (70-99)
[2024-03-06] MEDS: FLOMAX 0.4 MG PO (21:48)
[2024-03-07] VITALS (34 sets, daily range): BP systolic 79–109; BP diastolic 50–83; PULSE 125; O2SAT 96–97; BMI 25.8
[2024-03-07] MEDS: NSS 500 IV ×2 (01:17→10:56)
[2024-03-07] MEDS: CORDARONE 518 MG IV ×2 (01:23→21:30)
--- NOTE | 2024-03-07 01:33 | PTCARENOTE ---
pt converting back and forth from rapid a-fib and NSR. HR 120s-150s. BP 90/52- notified Alejandra CHIEF CARDIOPULMONARY TECHNOLOGIST of events, order for IV 500ml bolus and IV amiodarone. IV amiodarone hung at 1 mg/min 33.3 ml/hr at 0130. pt is asymptomatic and sleeping. placed on
2L while sleeping. boogie intact. able to walk into bathroom x1 assist with RW to have a BM.
[2024-03-07 05:12] LABS: Hematocrit 29.6 % (39.0-52.0); Hemoglobin 10.3 g/dL (13.0-18.0); Mean Corp Hgb Conc. 34.8 g/dL (33.0-37.0); Mean Corpuscular Hgb 30.2 pg (27.0-31.0); Mean Corpuscular Volume 86.8 fL (80.0-94.0); Mean Platelet Volume 12.3 fL (7.4-10.4); Platelet Count 243 10^3/uL (130-400); Red Blood Cell Count 3.41 10^6/uL (4.70-6.10); Red Cell Dist. Width 13.8 % (11.5-14.5); White Blood Cell Count 8.5 10^3/uL (4.8-10.8)
[2024-03-07 05:40] LABS: ALT (SGPT) 111 U/L (0-50); AST (SGOT) 177 U/L (17-59); Albumin 2.2 g/dl (3.5-5.0); Alkaline Phosphatase 628 U/L (38-126); Blood Urea Nitrogen 43 mg/dl (9-20); Calcium 7.4 mg/dl (8.4-10.2); Carbon Dioxide 20 mmol/L (22-30); Chloride 109 mmol/L (98-107); Estimated Creatinine Clearance 36 ml/min; Glucose 112 mg/dl (70-99); Potassium 3.6 mmol/L (3.5-5.1); Sodium 138 mmol/L (135-145); Total Bilirubin 2.2 mg/dl (0.2-1.3); Total Protein 5.1 g/dl (6.3-8.2); eGFR 37.58
--- NOTE | 2024-03-07 07:49 | W.PN.CD ---
Today's Communication / Plan
-
Cont amio gtt and amio 400 mg bid
Impression / Plan
-
A-fib with RVR. he is going in and out of sinus
-cont amio gtt, cont amio 400 bid, amio 400 bid for 15 days, then amio 200 dailly for total of 45 days
-will have to closely monitor lfts
-[id number] 2 (a age greater than 75)--start eliquis
-
Sepsis likely 2/2 to PNA (abnormal cxr, cough, elevated procal)
-bp responding to IVF
-treatement as per medicine
Renal insufficiency creatinine- acute on chronic with associated acidosis.
-renal following
-likely 2/2 to hypotension
-will try to rhythm control to help with Hemodynamics
.
elevated LFTs- evaluation per medicine
-monitor now that we need amiodarone
.
History of DVT right upper extremity per history patient denies ever being on anticoagulation there are venous ultrasounds with nonocclusive thrombus as noted above which subsequently resolved on follow-up studies.
Subjective:
He is feeling much improved anxious to leave given is starting chemo
TTE: CONCLUSIONS
Normal biventricular size and systolic function without regional wall motion
abnormality.
Mild aortic regurgitation.
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
No prior study available for comparison.
Physical Exam
Vital Signs/Labs
Vital Signs
Temp Pulse Resp BP Pulse Ox
97.8 F 93 28 89/64 95
03/07/24 03:09 03/07/24 06:00 03/07/24 06:00 03/07/24 06:00 03/07/24 06:00
03/06/24 03/07/24 03/08/24
06:59 06:59 06:59
Actual Weight 191 lb 9.307 oz 190 lb 4.143 oz
03/07/24 04:51
03/07/24 04:51
PT 16.9 Sec (11.4-14.6) H 03/03/24 14:27
INR 1.34 03/03/24 14:27
APTT Cancelled 03/04/24 11:00
TSH 0.69 uIU/ml (0.47-4.68) 03/03/24 15:32
03/03/24
14:27
Cly-Q-Pudmtkqanza Pept [id number]
Physical Exam
Constitutional: No acute distress
EENT: Anicteric
Cardiovascular: Pedal edema is absent and Rhythm/rate is irregular
Respiratory: Respiratory effort normal and Crackles Present (bases)
GI: Soft
Neuro/Psych: AO x 3
Data Reviewed
-
Date of Service: March 07, 2024
EKG: Tracing Personally Visualized and interpreted (af)
Echo: Report Reviewed by me
Labs: Labs Reviewed by me
[2024-03-07 07:58] LABS: Glucose - Point of Care 95 mg/dl (70-99)
[2024-03-07] MEDS: ELIQUIS 2.5 MG PO ×2 (08:47→19:50)
[2024-03-07] MEDS: VIBRAMYCIN 100 MG PO ×2 (08:47→19:50)
[2024-03-07] MEDS: FLOMAX 0.4 MG PO (08:47)
--- NOTE | 2024-03-07 10:12 | W.PN.HOSP.TC ---
Addendum entered and electronically signed by Radha Mackey MD, Resident 03/09/24 10:03:
# MARQUISE on CKD 3b
-hypotension was most likely caused by pneumonia, possibly post renal
Addendum entered and electronically signed by Carlos Obrien MD 03/07/24 22:25:
Attending Addendum-
I saw and evaluated the patient. I reviewed the resident�s note and agree with findings and plan as documented in the resident�s note. Sub: continues to feel SOB at rest and EDWARDS. Amio bolus overnight due to hypotension. Denies CP palps. Full 12
point ROS reviewed and negative except as documented Exam: Vitals reviewed in chart GEN-NAD heart tachycardic irregular lungs tachypneic dry crackles b/l UL abd soft LE no edema boogie in place with concentrated urine
# Sepsis (POA) due to acute B/L PNA:
- blood cx NGTD
- cont Doxy and Rocephin day # 3
- ID on board
- CT chest-Confluent areas of parenchymal airspace opacity within both lungs, central predominance, with air bronchograms but no evidence for bronchial narrowing or obstruction. This could represent pneumonia. Somewhat unusual appearance,
consideration could be given to chronic parenchymal processes such as granulomatosis with polyangiitis, sarcoidosis, or cryptogenic organizing pneumonia.
Multiple small nodular densities scattered throughout both lungs. Given the multiple nodules, pulmonary metastatic disease remains a consideration, although these nodular opacities could be associated with acute or chronic infection/inflammation.
- pulm consult
- would benefit from bronch/bx
# Acute Hypoxemic Respiratory Failure
- from PNA
- wean for sats > 92 %
# MARQUISE on CKD 3b
-likely due to hypotension possibly post renal
-improving
-baseline @ 1.6
-renal following
-check Fena
-cont boogie
# Transaminitis
-likely due to hypotension vs meds amio, rocephin
-worsening
-repeat in am
-check ct a/p
# Atrial Fibrillation with Rapid Ventricular Response, new diagnosis:
- unstable
- cont amio gtt and PO amio, possible MARCELO/CV once infection clears and resp status improves
- cont Eliquis
- echo 03/03-Normal biventricular size and systolic function without regional wall motion abnormality.
- cont care in IMU
- cardiology on board
# BPH with urinary retention
- cont boogie for now
- encourage ambulation
- cont flomax
CODE FULL
Time spent coordinating care, review of plan of care with resident, personally reviewed records in EMR, med rec, consults, notes, labs, radiology, d/w nursing� 55 mins
Original Note:
Today's Communication/Plan
-
Patient will continue with Amiodarone for now. Central Line placed for Amiodarone
Assessment / Plan
Assessment / Plan
Assessment: 78 year old male with a history of BPH and right upper extremity DVT came to the office with ongoing upper respiratory symptoms for a week. Patient was found to have new onset Atrial Fibrillation with RVR alongside probably bilateral
pneumonia. Patient was started on Cardizem and antibiotics and is also being followed by nephrology for ongoing management of his Acute on chronic kidney injury.
Chest X-ray (03/06): Slightly hypoinflated compared to most recent radiograph. There are are patchy parenchymal airspace opacities throughout both lungs, slightly increasing in the left lower lung. As described previously, a leading consideration is
bilateral pneumonia. Neoplastic disease is also a possibility, or a combination of neoplastic disease and pneumonia.
#New onset A-fib with RVR
-[id number]=1
-Eliquis 2.5 mg twice daily continue
-Echo (03/03):Normal biventricular size and systolic function without regional wall motion abnormality. Mild aortic regurgitation. LV ejection fraction is 50-55%. Normal diastolic function.
-Appreciate cardiology input
-Amiodarone was switched to PO from IV and patient converted to Sinus Rhythm. Overnight patient went back to A-Fib and was switched back to IV
# Acute on chronic kidney injury
- High anion gap metabolic acidosis- Anion gap now closed
- Creatinine at baseline (around 2.0)
- No longer on IVF
- MARQUISE was probably due to Pneumonia but will continue monitoring BMP
- Appreciate nephrology-FeNa and urine protein/creatinine ratio within normal limits
- Renal ultrasound-Large volume bladder with diffusely trabeculated bladder wall. Large postvoid bladder residual. Bilateral ureteral jets are demonstrated.
- Trend BPs
- Appreciate Nephrology
- Awaiting Nephrology input today
- Will get Urine Sodium/Creatinine levels again
# Probable B/L Pneumonia
- Continue Rocephin and Doxycycline
- Afebrile
- No leukocytosis
- Procal elevated on 03/03
- Crackles improved but still audible
- Blood Culture Prelim Results showed no growth
- Chest CT: Small bilateral pleural effusions are present.
Confluent areas of parenchymal airspace opacity within both lungs, central predominance, with air bronchograms but no evidence for bronchial narrowing or obstruction. This could represent pneumonia. Somewhat unusual appearance, consideration could
be given to chronic parenchymal processes such as granulomatosis with polyangiitis, sarcoidosis, or cryptogenic organizing pneumonia.
Multiple small nodular densities scattered throughout both lungs. Given the multiple nodules, pulmonary metastatic disease remains a consideration, although these nodular opacities could be associated with acute or chronic infection/inflammation.
- Bronchoscopy and lung biopsy may be considered
- Pulmonary consulted- input appreciated
# Elevated LFTs
-Transient Transaminitis probably due to infection
-Will continue to monitor and trend LFTs
-US Abd was negative
-CT Scan Abd/Pelv ordered to check for any mass
-Will check GGTP
#History of BPH
-Patient has Boogie drain. Complained of some Suprapubic tenderness that goes away with urination.
-Continue current management as per Nephrology
-On no medications currently
-Continue Boogie for now
-Started on Flomax first dose given this morning
-Will try to get patient off Boogie as he gets better
Full Code- DVT
Prophylaxis:Eliquis
Anticipated Discharge: > 48 hours
Subjective/Interval History
-
Date of Service: March 07, 2024
Patient has been feeling alright overnight and says he did not feel any symptoms when he became A-Fib again last night. He says he does not have any shortness of breath but has not been walking around too much. He does not feel any palpitations or
chest pain at this time.
Objective Data
-
Labs:
Laboratory Results
03/07/24
04:51
WBC 8.5
Hgb 10.3 L
Hct 29.6 L
Plt Count 243 D
Sodium 138
Potassium 3.6
Chloride 109 H
Carbon Dioxide 20 L
BUN 43 H
Creatinine 1.8 H
Glucose 112 H
Calcium 7.4 L
Total Bilirubin 2.2 H
AST 177 H
ALT 111 H
Alkaline Phosphatase 628 H
Vital Signs:
Vital Signs
Temp Pulse Resp BP Pulse Ox
97.5 F 124 22 107/76 92
03/07/24 08:44 03/07/24 08:00 03/07/24 08:00 03/07/24 08:00 03/07/24 08:00
I&O
03/06/24 03/07/24 03/08/24
06:59 06:59 06:59
Intake Total 1919.6 / 1919.6
Output Total 1675 / 1675 975 / 975 250 / 250
Balance 244.6 / 244.6 -975 / -975 -250 / -250
Review of Systems
-
History Source: Patient
Constitutional: Reports No Symptoms
EENT: Reports No Symptoms Reported
Respiratory: Denies Cough, Trouble Breathing or Wheezing
Cardiac: Denies Chest Pain, Palpitations or Syncope
Abdomen/GI: Denies Abdominal Pain, Nausea or Vomiting
Genitourinary: Reports No Symptoms
Musculoskeletal: Reports No Symptoms
Skin: Reports No Symptoms
Neuro: Reports No Symptoms
Endocrine: Reports No Symptoms
Hematologic / Lymphatic: Reports No Symptoms
Allergy / Immunology: Reports No Symptoms
Physical Exam
-
General: Well Developed, Well Nourished, No Apparent Distress and Comfortable
HEENT: Normocephalic and Atraumatic
Respiratory: Clear to Auscultation and Non Labored Respirations
Cardiac: S1/S2, Irregular Rhythm and Tachycardic
GI: Soft, Nontender and Nondistended
Musculoskeletal: No Clubbing, No Cyanosis and No Edema
Skin: Warm and Dry
Neuro: Awake, Alert, Oriented and AO x 3
Psych: Calm
Data Reviewed
-
CT Scan: Report Reviewed by me, Discussed with Physician and Discussed with Patient
Labs: Labs Reviewed by me, Discussed with Physician and Discussed with Patient
--- NOTE | 2024-03-07 10:55 | W.PN.NEPH.PH ---
Today's Communication / Plan
-
Continue rate control efforts
Monitor urine output via Baez
Antibiotic
Assessment/Plan
-
Impression:
MARQUISE
CKD 3 (1.5-1.8)
New onset atrial fibrillation with rapid ventricular response= cardiology note
Pneumonia (Bilateral hilar and suprahilar opacities)= infectious disease noted
Nongapped and gapped metabolic acidosis= resolved
BPH
History of DVT
Plan:
MARQUISE/metabolic acidosis
-Now with Baez catheter due to high postvoid bladder scan/continue
-Remains in A-fib with hemodynamic lability on amiodarone drip status post IV fluid bolus last night/cardiology noted
-Check kidney and bladder ultrasound: No hydro or obstructive findings
Continue antibiotics renal dose all medications for appropriate GFR
Renal function is stable current creatinine2> 1.8
Creatinine peaked at 2.4
Baseline creatinine 1.8. Creatinine per records 1.5 in 2021= does not follow with nephrology outpatient
Continue to monitor urine output and hemodynamics as the acuity is likely secondary to hemodynamic with a component of urinary retention
No changes made today discussed with his medical nurse
-
-
Date of Service: March 07, 2024
CC / HPI / ROS
-
Chief Complaint:
Acute on chronic kidney disease
Metabolic acidosis
New onset A-fib
History of Present Illness:
Remains in A-fib on amiodarone
Baez catheter remains nonoliguric= 1.2 L out
Review of Systems:
No chest pain or shortness of breath
Sitting comfortable in the chair
Labs
-
Labs:
WBC 8.5 10^3/uL (4.8-10.8) 03/07/24 04:51
RBC 3.41 10^6/uL (4.70-6.10) L 03/07/24 04:51
Hgb 10.3 g/dL (13.0-18.0) L 03/07/24 04:51
Hct 29.6 % (39.0-52.0) L 03/07/24 04:51
Plt Count 243 10^3/uL (130-400) D 03/07/24 04:51
Sodium 138 mmol/L (135-145) 03/07/24 04:51
Potassium 3.6 mmol/L (3.5-5.1) 03/07/24 04:51
Chloride 109 mmol/L (98-107) H 03/07/24 04:51
Carbon Dioxide 20 mmol/L (22-30) L 03/07/24 04:51
BUN 43 mg/dl (9-20) H 03/07/24 04:51
Creatinine 1.8 mg/dL (0.7-1.3) H 03/07/24 04:51
eGFR 37.58 03/07/24 04:51
Glucose 112 mg/dl (70-99) H 03/07/24 04:51
Calcium 7.4 mg/dl (8.4-10.2) L 03/07/24 04:51
Bbo-V-Wzhyxvlcyqh Pept 05236 pg/ml 03/03/24 14:27
Albumin 2.2 g/dl (3.5-5.0) L 03/07/24 04:51
Physical Exam
-
Vital Signs:
Vital Signs
Temp Pulse Resp BP Pulse Ox
97.5 F 116 22 83/65 88
03/07/24 08:44 03/07/24 10:28 03/07/24 10:28 03/07/24 10:28 03/07/24 10:28
Cardiovascular:: Irregular rate and rhythm
Respiratory:: Bilateral: Coarse
Lung Excursion:: Normal
Abdomen:: Soft
Bowel Sounds:: Normal
Extremity Edema:: None: Bilateral:
Baez Catheter: Yes
--- NOTE | 2024-03-07 11:00 | W.PN.ID1 ---
Date of Service
Date of Service: March 07, 2024
Today's Communication
Recommend CT a/p.
Consider bronch.
Assessment / Plan
# Bilateral PNA/CAP
# New finding of multiple lung nodules
# Non-productive cough
# Fever - resolved
# Hypotension
# Elevated LFT's - abd US unremarkable
# MARQUISE improved
# new onset Afib with RVR
# BPH/urinary retention - boogie placed
- COVID neg, Influenza A/B neg , RSV PCR negative
- urine legionella and strep pneumo antigens negative
-respiratory viral panel negative
- Blood cx negative to date
-MRSA screen negative
-CT chest: central opacities with air bronchograms, multiple nodules concerning for metastatic disease.
- Recommend CT a/p to eval for malignancy, mass, hepatic mets, etc.
-Consider bronch
- Continue ceftriaxone and po doxycycline.
- Follow O2 status
Chief Complaint
-: Pneumonia
Subjective / Review of Systems
Cough somewhat better.
SOB worse with activity.
Vital Signs / Physical Exam
Vital Signs
Vital Signs
Temp Pulse Resp BP Pulse Ox
97.5 F 116 22 83/65 88
03/07/24 08:44 03/07/24 10:28 03/07/24 10:28 03/07/24 10:28 03/07/24 10:28
Physical Exam
Constitutional: Comfortable
Cardiovascular: Irregular Rate
Pulmonary: Other (Decreased BS bilaterally)
Gastrointestinal: Soft and Non Tender
Extremities: Negative Edema
Neurological: AO x 3
Objective Data
Lab Data
Lab Results
03/07/24 04:51
03/07/24 04:51
PT 16.9 Sec (11.4-14.6) H 03/03/24 14:27
INR 1.34 03/03/24 14:27
APTT Cancelled 03/04/24 11:00
Estimated Creat Clear 36 ml/min 03/07/24 04:51
Lactic Acid 1.1 mmol/L (0.7-2.0) 03/03/24 14:27
Total Bilirubin 2.2 mg/dl (0.2-1.3) H 03/07/24 04:51
AST 177 U/L (17-59) H 03/07/24 04:51
ALT 111 U/L (0-50) H 03/07/24 04:51
Alkaline Phosphatase 628 U/L (38-126) H 03/07/24 04:51
Most recent labs reviewed.
Micro Results:
03/05/24 15:48 Blood Culture - Preliminary
Blood/Venous No Growth in 24 hours- Final report to follow
03/05/24 11:10 MRSA Screen - Final
Nose No Methicillin Resistant Staphylococcus aureus isolated.
03/05/24 15:48 Influenza Type A (PCR) - Final
Nasalpharynx Not Detected
Influenza Type A (H1) (PCR) - Final
Not Detected
Influenza Type A (H3) (PCR) - Final
Not Detected
Influenza Type B (PCR) - Final
Not Detected
Resp Syncytial Virus Type A (PCR) - Final
Not Detected
Resp Syncytial Virus Type B (PCR) - Final
Not Detected
Adenovirus DNA (PCR) - Final
Not Detected
Human Metapneumovirus (PCR) - Final
Not Detected
Parainfluenza Virus Type 1 (PCR) - Final
Not Detected
Parainfluenza Virus Type 2 (PCR) - Final
Not Detected
Parainfluenza Virus Type 3 (PCR) - Final
Not Detected
Parainfluenza Virus Type 4 - Final
Not Detected
Rhinovirus (PCR) - Final
Not Detected
03/05/24 11:10 Blood Culture - Preliminary
Blood/Venous No Growth in 24 hours- Final report to follow
03/05/24 15:48 Legionella Urinary Antigen - Final
Urine Negative for Legionella pneumophila Serogroup 1 antigen.
A negative result does not rule out the possiblity of
Legionella infection due to other serogroups or species of
Legionella. Clinical correlation is recommended.
Streptococcus pneumoniae Antigen (M - Final
Negative for Streptococcus pneumoniae antigen.
A negative result does not exclude infection with
Streptococcus pneumoniae. Clinical correlation is
recommended.
03/05/24 15:48 Respiratory Syncytial Virus Culture - Final
Nasal Swab Negative for Respiratory Syncytial Virus.
A false negative result may be obtained with a specimen
collected early in the acute phase. If symptoms persist, a
new specimen should be tested.
03/05/24 15:48 Influenza Types A & B (BHARAT) - Final
Nasal Swab Negative for Influenza A & B, NAAT
Negative results must be combined with clinical observations
and patient history.
Nucleic Acid Amplification test (NAAT)performed on the
[employer] platform.
03/03/24 CXR: Bilateral parenchymal opacities
03/04/24 Renal US: Large volume bladder with diffusely trabeculated bladder wall. Large postvoid bladder residual. Bilateral ureteral jets are demonstrated.
03/05/24 Abd US: No sonographic evidence of acute cholecystitis, cholelithiasis or biliary ductal dilation.
03/06/24 CXR: The lungs appear slightly hypoinflated compared to most recent radiograph. There is also new blunting of the left lateral costophrenic angle suggesting a small left pleural effusion. There are are patchy parenchymal airspace opacities
throughout both lungs, slightly increasing in the left lower lung. As described previously, a leading consideration is bilateral pneumonia. Neoplastic disease is also a possibility, or a combination of neoplastic disease and pneumonia.
03/06/[address]: Confluent areas of parenchymal airspace opacity within both lungs, central predominance, with air bronchograms but no evidence for bronchial narrowing or obstruction. This could represent pneumonia. Somewhat unusual appearance,
consideration could be given to chronic parenchymal processes such as granulomatosis with polyangiitis, sarcoidosis, or cryptogenic organizing pneumonia. Multiple small nodular densities scattered throughout both lungs. Given the multiple nodules,
pulmonary metastatic disease remains a consideration, although these nodular opacities could be associated with acute or chronic infection/inflammation.
Care Review
Plan reviewed with: Physician (Dr. Eulalia Mackey)
--- NOTE | 2024-03-07 11:38 | PTCARENOTE ---
Pt hypotensive with BP 80s systolic. Notifified cards HEAD HOLDER plus medical team. Briefly stopped Amio drip. gave 500ml bolus as ordered. BP improved 97/70. restarted Amio drip per cardiology.Pt remains in a fib with HR 130s
[2024-03-07 11:44] LABS: Glycohemoglobin (HgbA1c) 6.1 % (4.0-5.6)
[2024-03-07 12:43] LABS: Glucose - Point of Care 107 mg/dl (70-99)
--- NOTE | 2024-03-07 12:43 | PN.DE.MGMTRT ---
Insulin Management
- -
03/07/2024 Diabetes Education Consult for insulin instruction
Patient admitted 03/03 with heart rate problem found to be in Afib. PMH sever days of cough. Primary doctor is Cong Bland who he last saw earlier this year. A1C 6.1, cr 1.8, eGFR 37.58.
Patient has pre diabetes. Glucose since admission has ranged 93 to 142 with 2 elevations, 162 pre lunch and 227. He is not requiring insulin. Glucose monitoring will not be covered by insurance with A1C of 6.1%.
Will ask dietitian to provide guidelines for better food choices.
Diabetes History
- -
Pre-Admission Diabetes Regimen
03/07/24
04:51
Creatinine 1.8 H
Lab Results
Hemoglobin A1c Cancelled 03/07/24 10:00
Insulin Pump Settings
IP Diabetes Regimen
03/06/24 03/06/24 03/07/24
17:37 21:36 04:51
Glucose 112 H
POC Glucose 142 H 93
03/07/24
07:46
Glucose
POC Glucose 95
Meal type: Breakfast
Amount consumed: 50%
Patient Education
[2024-03-07 15:55] LABS: GGTP 461 U/L (15-73)
[2024-03-07] MEDS: ROCEPHIN 2000 MG IV (16:22)
[2024-03-07] MEDS: STERILE WATER FOR INJECTION 20 ML IV (16:23)
[2024-03-07 16:26] LABS: Urine Sodium 17 mmol/L (30-90)
[2024-03-07 17:59] LABS: Glucose - Point of Care 122 mg/dl (70-99)
[2024-03-07 22:05] LABS: Glucose - Point of Care 100 mg/dl (70-99)
[2024-03-08] VITALS (22 sets, daily range): BP systolic 66–108; BP diastolic 53–87
--- NOTE | 2024-03-08 00:58 | PTCARENOTE ---
assumed care of patient. pt is AAOx3 but forgetful. pt is SOB on exertion. able to use BSC x1 assist. pt very anxious, at times telling this RN that he is having trouble breathing but patient noted to have taken oxygen out of his nose. pt is on 2L
NC 94%. boogie intact draining yellow urine. to be removed in the AM. bed alarm on. positive environment maintained. care ongoing.
[2024-03-08] MEDS: TYLENOL 650 MG PO ×2 (02:21→19:28)
[2024-03-08 05:59] LABS: ALT (SGPT) 92 U/L (0-50); AST (SGOT) 98 U/L (17-59); Albumin 2.2 g/dl (3.5-5.0); Alkaline Phosphatase 559 U/L (38-126); Blood Urea Nitrogen 47 mg/dl (9-20); Calcium 7.8 mg/dl (8.4-10.2); Carbon Dioxide 23 mmol/L (22-30); Chloride 107 mmol/L (98-107); Direct Bilirubin 1.3 mg/dl (0.0-0.4); Estimated Creatinine Clearance 36 ml/min; GGTP 440 U/L (15-73); Glucose 110 mg/dl (70-99); Potassium 3.7 mmol/L (3.5-5.1); Sodium 136 mmol/L (135-145); Total Bilirubin 1.8 mg/dl (0.2-1.3); Total Protein 5.2 g/dl (6.3-8.2); eGFR 37.58
[2024-03-08 06:08] LABS: NT-proBNP 13500 pg/ml
[2024-03-08 06:13] LABS: Procalcitonin 1.45 ng/ml (0.0-0.25)
--- NOTE | 2024-03-08 07:13 | PTCARENOTE ---
boogie catheter removed per order. urinal provided at bedside.
--- NOTE | 2024-03-08 08:26 | W.PN.CD ---
Today's Communication / Plan
-
in afib wit mildly accelerated rates. Continue with amio
BP limited addtional rate control
would not add Digxoin with CKD and recent bradford
monitor LFT
Impression / Plan
-
A-fib with RVR. he is going in and out of sinus
- in afib this morning. treatment limited by BP
- cotninue amiodarone
-cont amio gtt, cont amio 400 bid, amio 400 bid for 15 days, then amio 200 dailly for total of 45 days
-[id number] 2 (a age greater than 75)--start eliquis
-
Sepsis likely 2/2 to PNA (abnormal cxr, cough, elevated procal)
-bp responding to IVF
-treatment as per medicine
Renal insufficiency creatinine- acute on chronic with associated acidosis.
-renal following
-likely 2/2 to hypotension
-will try to rhythm control to help with Hemodynamics
.
elevated LFTs- improving
=evaluation per medicine
-monitor now that we need amiodarone
.
History of DVT right upper extremity per history patient denies ever being on anticoagulation there are venous ultrasounds with nonocclusive thrombus as noted above which subsequently resolved on follow-up studies.
Subjective:
He is feeling much improved .
TTE: CONCLUSIONS
Normal biventricular size and systolic function without regional wall motion
abnormality.
Mild aortic regurgitation.
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
No prior study available for comparison.
Physical Exam
Vital Signs/Labs
Vital Signs
Temp Pulse Resp BP Pulse Ox
97.5 F 122 19 95/68 95
03/08/24 03:00 03/08/24 06:01 03/08/24 06:01 03/08/24 06:01 03/08/24 06:01
03/07/24 03/08/24 03/09/24
06:59 06:59 06:59
Actual Weight 86.3 kg
03/07/24 04:51
03/08/24 05:27
PT 16.9 Sec (11.4-14.6) H 03/03/24 14:27
INR 1.34 03/03/24 14:27
APTT Cancelled 03/04/24 11:00
TSH 0.69 uIU/ml (0.47-4.68) 03/03/24 15:32
03/03/24 03/08/24
14:27 05:27
Zzj-Z-Lecraildkil Pept [id number]
Physical Exam
Constitutional: No acute distress
Cardiovascular: Rhythm/rate is irregular
Respiratory: Crackles Absent, Rhonchi Absent and Wheeze Present
GI: Soft
Neuro/Psych: Alert
Data Reviewed
-
Date of Service: March 08, 2024
Medical Decision Making: Reviewed Test Results
Echo: Report Reviewed by me
Medical Tests (PFT, Pathology etc): Image Personally Visualized and interpreted
Labs: Labs Reviewed by me
[2024-03-08 08:42] LABS: Glucose - Point of Care 100 mg/dl (70-99)
[2024-03-08] MEDS: FLOMAX 0.4 MG PO (09:06)
[2024-03-08] MEDS: VIBRAMYCIN 100 MG PO ×2 (09:06→19:28)
[2024-03-08] MEDS: ELIQUIS 2.5 MG PO ×2 (09:06→19:28)
[2024-03-08] MEDS: PACERONE 400 MG PO ×2 (09:06→19:28)
--- NOTE | 2024-03-08 09:12 | VATNOTE ---
Amiodarone infusion off at this time.
--- NOTE | 2024-03-08 09:49 | CON.PUL ---
Consultation
Consultation Request
Date/Time Consultation Requested: 03/08/2024-8 AM
Date/Time Consultation Performed: 03/08/2024-8:30 AM
Requesting Provider: Hospitalist
Performing Provider: Dr. Scott
Reason for Consultation: Shortness of breath
Medical History
-
Chief Complaint: Abnormal CT chest
History of Present Illness:
78-year-old male without significant past medical history presented with a bad cold and reported cough, generalized weakness and fatigue admitted and treated for pneumonia also seen by cardiology for new onset atrial fibrillation and nephrology for
acute kidney injury as well as infectious disease for bilateral pneumonia-pulmonary consulted for abnormal CT chest/pneumonia/hypoxemia 03/08/2024. Patient remarkably does not complain of significant shortness of breath and is anxious for
discharge. He denies any chest congestion, productive cough, mopped assist, abdominal pain, nausea, focal weakness.
Past Medical History
Past Medical History: None (Denies previous CAD, pulmonary, renal, gastrointestinal or neurologic disease)
Social History
Tobacco: Non-smoker
Alcohol: Occasional
Drug: None
Personal:
Living: With Family
Occupational Exposures: No known asbestos exposure
Environmental Exposures: No known tuberculosis exposure
Family History
Family History: Reviewed & Not Pertinent
Allergies / Home Medications
Allergies
Allergy/AdvReac Type Severity Reaction Status Date / Time
No Known Allergies Allergy Verified 05/28/16 09:49
Home Medications
�Medication �Instructions �Recorded �Confirmed �Last Taken �Type
No Meds [No Current Medications] 03/03/24 03/03/24 Unknown History
Review of Systems
-
Unable to Obtain full review of systems at this time due to: Other (Per HPI)
Vitals / Labs / Diagnostic Testing
Vital Signs
Temp Pulse Resp BP Pulse Ox
97.6 F 110 19 107/81 95
03/08/24 07:05 03/08/24 09:06 03/08/24 06:01 03/08/24 09:06 03/08/24 06:01
Lab Data
03/07/24 04:51
03/08/24 05:27
Microbiology
03/05/24 15:48 Blood/Venous Blood Culture - Preliminary
No Growth in 48 hours- Final report to follow
03/05/24 11:10 Blood/Venous Blood Culture - Preliminary
No Growth in 48 hours- Final report to follow
03/05/24 11:10 Nose MRSA Screen - Final
No Methicillin Resistant Staphylococcus aureus isolated.
03/05/24 15:48 Nasalpharynx Influenza Type A (PCR) - Final
Not Detected
03/05/24 15:48 Nasalpharynx Influenza Type A (H1) (PCR) - Final
Not Detected
03/05/24 15:48 Nasalpharynx Influenza Type A (H3) (PCR) - Final
Not Detected
03/05/24 15:48 Nasalpharynx Influenza Type B (PCR) - Final
Not Detected
03/05/24 15:48 Nasalpharynx Resp Syncytial Virus Type A (PCR) - Final
Not Detected
03/05/24 15:48 Nasalpharynx Resp Syncytial Virus Type B (PCR) - Final
Not Detected
03/05/24 15:48 Nasalpharynx Adenovirus DNA (PCR) - Final
Not Detected
03/05/24 15:48 Nasalpharynx Human Metapneumovirus (PCR) - Final
Not Detected
03/05/24 15:48 Nasalpharynx Parainfluenza Virus Type 1 (PCR) - Final
Not Detected
03/05/24 15:48 Nasalpharynx Parainfluenza Virus Type 2 (PCR) - Final
Not Detected
03/05/24 15:48 Nasalpharynx Parainfluenza Virus Type 3 (PCR) - Final
Not Detected
03/05/24 15:48 Nasalpharynx Parainfluenza Virus Type 4 - Final
Not Detected
03/05/24 15:48 Nasalpharynx Rhinovirus (PCR) - Final
Not Detected
03/05/24 15:48 Urine Legionella Urinary Antigen - Final
Negative for Legionella pneumophila Serogroup 1 antigen.
A negative result does not rule out the possiblity of
Legionella infection due to other serogroups or species of
Legionella. Clinical correlation is recommended.
03/05/24 15:48 Urine Streptococcus pneumoniae Antigen (M - Final
Negative for Streptococcus pneumoniae antigen.
A negative result does not exclude infection with
Streptococcus pneumoniae. Clinical correlation is
recommended.
03/05/24 15:48 Nasal Swab Respiratory Syncytial Virus Culture - Final
Negative for Respiratory Syncytial Virus.
A false negative result may be obtained with a specimen
collected early in the acute phase. If symptoms persist, a
new specimen should be tested.
03/05/24 15:48 Nasal Swab Influenza Types A & B (BHARAT) - Final
Negative for Influenza A & B, NAAT
Negative results must be combined with clinical observations
and patient history.
Nucleic Acid Amplification test (NAAT)performed on the
[employer] platform.
Diagnostic Testing:
Physical Exam
-
Exam:
Well-nourished and well-developed in no apparent distress
HEENT-atraumatic, normocephalic
Neck-supple, no JVD, no bruit
Heart-regular rate and rhythm-no murmurs, rubs or gallops
Chest with rare crackles, no wheezes or rhonchi
Back without tenderness
Abdomen-soft, nontender, nondistended, no hepatosplenomegaly
Extremities-no cyanosis, clubbing, edema and good peripheral pulses
Integument-intact, no rashes, lesions or ecchymosis
Neurology-alert and oriented, nonfocal motor and sensory exam
Assessment
-
78-year-old male without significant past medical history presented with a bad cold and reported cough, generalized weakness and fatigue admitted and treated for pneumonia also seen by cardiology for new onset atrial fibrillation and nephrology for
acute kidney injury as well as infectious disease for bilateral pneumonia-pulmonary consulted for abnormal CT chest/pneumonia/hypoxemia 03/08/2024.
Kggarpwzf-awpezizfh-dkckwyug
Abnormal CT chest-multiple nodular/masses suspicious for potential metastatic disease
New onset atrial fibrillation with rapid ventricular response
MARQUISE
Mild eqkcwa-elfxxybkvp-cjaobwmucx 10.3
Conditions present prior to admission:
Denies CAD, pulmonary, renal, gastrointestinal or neurologic disease
Plan
Respiratory decompensation likely due to bilateral multiple nodular/masses with broad differential including atypical pneumonias, granulomatosis with polyangiitis, sarcoidosis, cryptogenic organizing pneumonia, metastatic cancer
Supplemental oxygen as needed
Incentive spirometry
Aspiration precautions
Nebulizers if needed-currently not bronchospastic
CT abdomen and pelvis-pending
Will likely need biopsy for more definitive diagnosis-multiple nodular masses in the lungs are quite peripheral and potentially amenable through CT needle biopsy versus robotic bronchoscopy
If abdominal CT reveals potential other sources for biopsy then we will pursue this direction
Cultures reviewed
Infectious disease following
Ceftriaxone and doxycycline continue-finite course
Cardiology following
Atrial fibrillation rate control
Amiodarone load ongoing
Nephrology following
Monitor renal function
Replace electrolytes
DVT prophylaxis-on Eliquis
Nutrition
Early mobilization
Reviewed with nursing
Diagnostic data:
Chest x-ray 06/10/2017-NAD
Chest x-ray 03/03/2024-bilateral parenchymal opacifications
CT chest 03/06/2024-centrally predominant parenchymal opacifications with atypical presentation for pneumonia and multiple small nodular densities scattered throughout both lungs-differential granulomatosis with polyangiitis, sarcoidosis,
cryptogenic organizing pneumonia or metastatic cancer or even chronic infection/inflammation
Echocardiogram 03/03/2024-EF 50-55%, mild aortic regurgitation
Data Reviewed
-
EKG: Report reviewed by me
Radiology: Image personally visualized and interpreted and Report reviewed by me
CT Scan: Image personally visualized and interpreted and Report reviewed by me
Medical Tests (Nuc Med, Echo etc): Report reviewed by me
Labs: Labs reviewed by me
Old Records: Reviewed
Total Time Spent with Patient (in minutes): 65
--- NOTE | 2024-03-08 09:53 | W.PN.HOSP.TC ---
Addendum entered and electronically signed by Radha Mackey MD, Resident 03/14/24 10:07:
# MARQUISE on CKD 3b
-likely due to hypotension only
-stable
-baseline @ 1.6
-renal following
Addendum entered and electronically signed by Carlos Obrien MD 03/08/24 21:15:
Attending Addendum-
I saw and evaluated the patient. I reviewed the resident�s note and agree with findings and plan as documented in the resident�s note. Sub: feels extremely anxious. Wants to go home to see his who has cancer. Denies SOB/palpitations CP. Full 12
point ROS reviewed and negative except as documented Exam: Vitals reviewed in chart GEN-NAD heart tachycardic irregular lungs tachypneic dry crackles b/l UL abd soft LE no edema non palp bladder
# Sepsis (POA) due to acute B/L PNA:
- blood cx NGTD
- cont Doxy and Rocephin day # 6
- ID on board
- CT chest-Confluent areas of parenchymal airspace opacity within both lungs, central predominance, with air bronchograms but no evidence for bronchial narrowing or obstruction.
Multiple small nodular densities scattered throughout both lungs
- pulm consult-CT needle biopsy versus robotic bronchoscopy of nodules
- c/s IRAD
# Acute Hypoxemic Respiratory Failure
- from PNA ? CHF component
- wean for sats > 92 %
# MARQUISE on CKD 3b
-likely due to hypotension possibly post renal
-stable
-baseline @ 1.6
-renal following
-DC boogie for TOV today
# T12 sclerotic bone lesion, ? pulm mets, BPH
- highly suspicious for met prostate ca
- uro c/s
- ? bone scan
- IRAD c/s for bx
- check PSA - elevated
# Anxiety
- add short term benzos prn
- monitor closely- likely contributing to RVR
# Transaminitis
-likely due to hypotension
-improving
-check ct a/p-
1). Small bilateral pleural effusions with moderate interstitial airway disease at both lung bases similar to that seen on the 03/06/[address]
2). Prostatomegaly
3). Concentric thickening of the wall of the urinary bladder such as may be seen with chronic partial bladder outlet obstruction
4).There is a 15 mm sclerotic bone lesion at T12 which may be benign or malignant and which, if clinically indicated, could be further evaluated with bone scan
5). There is small amount of gas in the urinary bladder which may be on the basis of recent instrumentation, however, cystitis with gas producing organism could give this appearance.
# Atrial Fibrillation with Rapid Ventricular Response, new diagnosis:
- unstable
- cont amio gtt and PO amio, may benefit from MARCELO/CV once infection clears and resp status improves
- cont Eliquis
- echo 03/03-Normal biventricular size and systolic function without regional wall motion abnormality.
- cont care in IMU
- cardiology on board
# BPH with urinary retention
- TOV underway 03/08
- encourage ambulation
- cont flomax
CODE FULL
Time spent coordinating care, review of plan of care with resident, personally reviewed records in EMR, med rec, consults, notes, labs, radiology, d/w nursing� 58 mins
Original Note:
Today's Communication/Plan
-
Continue to monitor Urine output and Heart rhythm and rate control. Continue management of anxiety with medication as needed
Assessment / Plan
Assessment / Plan
Assessment: 78 year old male with a history of BPH and right upper extremity DVT came to the office with ongoing upper respiratory symptoms for a week. Patient was found to have new onset Atrial Fibrillation with RVR alongside probably bilateral
pneumonia. Patient was started on Cardizem and antibiotics and is also being followed by nephrology for ongoing management of his Acute on chronic kidney injury.
Chest X-ray (12/16): Slightly hypoinflated compared to most recent radiograph. There are are patchy parenchymal airspace opacities throughout both lungs, slightly increasing in the left lower lung. As described previously, a leading consideration is
bilateral pneumonia. Neoplastic disease is also a possibility, or a combination of neoplastic disease and pneumonia.
#New onset A-fib with RVR
-[id number]=5
-Eliquis 2.5 mg twice daily continue
-Echo (03/03):Normal biventricular size and systolic function without regional wall motion abnormality. Mild aortic regurgitation. LV ejection fraction is 50-55%. Normal diastolic function.
-Appreciate cardiology input
-Amiodarone was switched to PO from IV and patient converted to Sinus Rhythm. Overnight patient went back to A-Fib and was switched back to IV
-Currently on PO Amiodarone
-No plan to add Digoxin at the moment due to recent MARQUISE
# Acute on chronic kidney injury
- High anion gap metabolic acidosis- Anion gap now closed
- Creatinine at baseline (around 2.0)
- No longer on IVF
- MARQUISE was probably due to Pneumonia but will continue monitoring BMP
- Appreciate nephrology-FeNa and urine protein/creatinine ratio within normal limits
- FENa (0.2%)- Urine Creatinine 126.5, Urine Sodium 17
- Renal ultrasound-Large volume bladder with diffusely trabeculated bladder wall. Large postvoid bladder residual. Bilateral ureteral jets are demonstrated.
- Trend BPs
- Appreciate Nephrology
- Will get Urine Sodium/Creatinine levels again
- Boogie removed today but patient needed straight cath due to lack of voiding
# Probable B/L Pneumonia
- Continue Rocephin and Doxycycline (Day 4)
- Afebrile
- No leukocytosis
- Procal elevated on 03/03, Elevated still 1.45 today
- Crackles improved but still audible
- Blood Culture Prelim Results showed no growth
- Chest CT: Small bilateral pleural effusions are present.
Confluent areas of parenchymal airspace opacity within both lungs, central predominance, with air bronchograms but no evidence for bronchial narrowing or obstruction. This could represent pneumonia. Somewhat unusual appearance, consideration could
be given to chronic parenchymal processes such as granulomatosis with polyangiitis, sarcoidosis, or cryptogenic organizing pneumonia.
Multiple small nodular densities scattered throughout both lungs. Given the multiple nodules, pulmonary metastatic disease remains a consideration, although these nodular opacities could be associated with acute or chronic infection/inflammation.
- Bronchoscopy and lung biopsy may be considered
- Pulmonary consulted- input appreciated
#Anxiety
- Patient anxious due to his long hospital stay. Wants to go visit his and be there for her
- Given Ativan to help with anxiety
# Transaminitis
-Transient Transaminitis probably due to infection
-Will continue to monitor and trend transaminases
-US Abd was negative
-GGTP elevated (440)
-CT Scan Abd/Pelv
- Prostatomegaly. Concentric thickening of the wall of the urinary bladder such as may be seen with chronic partial bladder outlet obstruction
- 15 mm sclerotic bone lesion at T12 which may be benign or malignant and which, if clinically indicated, could be further evaluated with bone scan
# History of BPH
-Patient has Boogie drain. Complained of some Suprapubic tenderness that goes away with urination. Resolved now
-Continue current management as per Nephrology
-On no medications currently
-Started on Flomax first dose given this morning
-Boogie removed today in the AM but patient could not void
-Straight cath needed
-Follow up with Urology outpatient
Full Code- DVT
Prophylaxis:Eliquis
Anticipated Discharge: 24 - 48 hours
Subjective/Interval History
-
Date of Service: March 08, 2024
Patient has been feeling the same but says he is becoming tired of staying at the hospital alone. He wants to leave soon due to wanting to be with his who is dealing with a cancer diagnosis.
Objective Data
-
Labs:
Laboratory Results
03/08/24
05:27
Sodium 136
Potassium 3.7
Chloride 107
Carbon Dioxide 23
BUN 47 H
Creatinine 1.8 H
Glucose 110 H
Calcium 7.8 L
Total Bilirubin 1.8 H
AST 98 H
ALT 92 H
Alkaline Phosphatase 559 H
Vital Signs:
Vital Signs
Temp Pulse Resp BP Pulse Ox
97.6 F 110 19 107/81 95
03/08/24 07:05 03/08/24 09:06 03/08/24 06:01 03/08/24 09:06 03/08/24 06:01
I&O
03/07/24 03/08/24 03/09/24
06:59 06:59 06:59
Intake Total 240 / 240
Output Total 975 / 975 875 / 875
Balance -975 / -975 -635 / -635
Review of Systems
-
History Source: Patient
Constitutional: Reports No Symptoms
EENT: Reports No Symptoms Reported
Respiratory: Reports Cough; Denies Trouble Breathing or Wheezing
Cardiac: Denies Chest Pain, Diaphoresis, Palpitations or Syncope
Abdomen/GI: Denies Abdominal Pain, Nausea or Vomiting
Genitourinary: Reports No Symptoms
Musculoskeletal: Reports No Symptoms
Skin: Reports No Symptoms
Neuro: Denies Headache, Weakness or Numbness
Endocrine: Reports No Symptoms
Hematologic / Lymphatic: Reports No Symptoms
Allergy / Immunology: Reports No Symptoms
Psych: Reports Anxious
Physical Exam
-
General: Well Developed, Well Nourished, No Apparent Distress and Comfortable
HEENT: Normocephalic and Atraumatic
Respiratory: Crackles
Cardiac: S1/S2 and Irregular Rhythm
GI: Soft, Nontender and Nondistended
Musculoskeletal: No Clubbing, No Cyanosis and No Edema
Skin: Warm and Dry
Neuro: Awake, Alert, Oriented and AO x 3
Psych: Calm and Anxious
Data Reviewed
-
Labs: Labs Reviewed by me, Discussed with Physician, Discussed with Nurse and Discussed with Patient
--- NOTE | 2024-03-08 09:57 | W.PN.NEPH.PH ---
Today's Communication / Plan
-
No new changes
Follow BMP
Assessment/Plan
-
Impression:
MARQUISE
CKD 3 (1.5-1.8)
New onset atrial fibrillation with rapid ventricular response= cardiology note
Pneumonia (Bilateral hilar and suprahilar opacities)= infectious disease noted
Nongapped and gapped metabolic acidosis= resolved
BPH
History of DVT
Plan:
MARQUISE/metabolic acidosis
-Now with Baez catheter due to high postvoid bladder scan/continue
-Remains in A-fib with hemodynamic lability on amiodarone drip status post IV fluid bolus last night/cardiology noted
-Check kidney and bladder ultrasound: No hydro or obstructive findings
Continue antibiotics renal dose all medications for appropriate GFR
Renal function is stable current creatinine2> 1.8
Creatinine peaked at 2.4
Baseline creatinine 1.8. Creatinine per records 1.5 in 2021= does not follow with nephrology outpatient
Continue to monitor urine output and hemodynamics as the acuity is likely secondary to hemodynamic with a component of urinary retention
No changes made today discussed with his medical nurse
-
-
Date of Service: March 08, 2024
CC / HPI / ROS
-
Chief Complaint:
Acute on chronic kidney disease
Metabolic acidosis
New onset A-fib
History of Present Illness:
Creatinine stable at 1.8
Remains in A-fib on amiodarone
Baez catheter remains nonoliguric= 1.2 L out
Review of Systems:
No chest pain or shortness of breath
Sitting comfortable in the chair
Labs
-
Labs:
WBC 8.5 10^3/uL (4.8-10.8) 03/07/24 04:51
RBC 3.41 10^6/uL (4.70-6.10) L 03/07/24 04:51
Hgb 10.3 g/dL (13.0-18.0) L 03/07/24 04:51
Hct 29.6 % (39.0-52.0) L 03/07/24 04:51
Plt Count 243 10^3/uL (130-400) D 03/07/24 04:51
Sodium 136 mmol/L (135-145) 03/08/24 05:27
Potassium 3.7 mmol/L (3.5-5.1) 03/08/24 05:27
Chloride 107 mmol/L (98-107) 03/08/24 05:27
Carbon Dioxide 23 mmol/L (22-30) 03/08/24 05:27
BUN 47 mg/dl (9-20) H 03/08/24 05:27
Creatinine 1.8 mg/dL (0.7-1.3) H 03/08/24 05:27
eGFR 37.58 03/08/24 05:27
Glucose 110 mg/dl (70-99) H 03/08/24 05:27
Calcium 7.8 mg/dl (8.4-10.2) L 03/08/24 05:27
Ptc-Q-Xofbfzgkrqz Pept 67850 pg/ml 03/08/24 05:27
Albumin 2.2 g/dl (3.5-5.0) L 03/08/24 05:27
Physical Exam
-
Vital Signs:
Vital Signs
Temp Pulse Resp BP Pulse Ox
97.6 F 110 19 107/81 95
03/08/24 07:05 03/08/24 09:06 03/08/24 06:01 03/08/24 09:06 03/08/24 06:01
Cardiovascular:: Irregular rate and rhythm
Respiratory:: Bilateral: Coarse
Lung Excursion:: Normal
Abdomen:: Soft
Bowel Sounds:: Normal
Extremity Edema:: None: Bilateral:
Baez Catheter: Yes
[2024-03-08 12:23] LABS: Glucose - Point of Care 129 mg/dl (70-99)
--- NOTE | 2024-03-08 13:42 | W.PN.ID1 ---
Date of Service
Date of Service: March 08, 2024
Today's Communication
Continue abx's.
Assessment / Plan
# Bilateral PNA/CAP
# New finding of multiple lung nodules
# Non-productive cough - improving
# Fever - resolved
# Hypotension
# Elevated LFT's - CT unremarkable liver
# MARQUISE improved
# new onset Afib with RVR
# BPH/urinary retention - boogie dc'd
- COVID neg, Influenza A/B neg , RSV PCR negative
- urine legionella and strep pneumo antigens negative
-respiratory viral panel negative
- Blood cx negative to date
-MRSA screen negative
-CT chest: central opacities with air bronchograms, multiple nodules concerning for metastatic disease.
- CT a/p wo IV contrast: 15mm sclerotic bone lesion T12, could be further evaluated with bone scan; BPH
-Pulmonary following
- Continue ceftriaxone (d6) and po doxycycline (d6).
Chief Complaint
-: Pneumonia
Subjective / Review of Systems
Wants to go home today.
Cough improving.
Vital Signs / Physical Exam
Vital Signs
Vital Signs
Temp Pulse Resp BP Pulse Ox
97.8 F 133 19 99/78 97
03/08/24 11:05 03/08/24 12:00 03/08/24 12:00 03/08/24 11:00 03/08/24 09:02
Physical Exam
Constitutional: Comfortable
Eyes: No Conjunctival Hemorrhage and Sclera Anicteric
Cardiovascular: Irregular Rate and Other (Tachycardic)
Pulmonary: Rales (crackles)
Gastrointestinal: Soft, Non Tender, Non Distended and Normal Bowel Sounds
Genito-Urinary: Negative CVA Tenderness
Extremities: Negative Edema
Neurological: AO x 3
Objective Data
Lab Data
Lab Results
03/07/24 04:51
03/08/24 05:27
PT 16.9 Sec (11.4-14.6) H 03/03/24 14:27
INR 1.34 03/03/24 14:27
APTT Cancelled 03/04/24 11:00
Estimated Creat Clear 36 ml/min 03/08/24 05:27
Lactic Acid 1.1 mmol/L (0.7-2.0) 03/03/24 14:27
Total Bilirubin 1.8 mg/dl (0.2-1.3) H 03/08/24 05:27
GGT 440 U/L (15-73) H 03/08/24 05:27
AST 98 U/L (17-59) H 03/08/24 05:27
ALT 92 U/L (0-50) H 03/08/24 05:27
Alkaline Phosphatase 559 U/L (38-126) H 03/08/24 05:27
Most recent labs reviewed.
Micro Results:
03/05/24 11:10 Blood Culture - Preliminary
Blood/Venous No Growth in 72 hours- Final report to follow
03/05/24 15:48 Blood Culture - Preliminary
Blood/Venous No Growth in 48 hours- Final report to follow
03/05/24 11:10 MRSA Screen - Final
Nose No Methicillin Resistant Staphylococcus aureus isolated.
03/05/24 15:48 Influenza Type A (PCR) - Final
Nasalpharynx Not Detected
Influenza Type A (H1) (PCR) - Final
Not Detected
Influenza Type A (H3) (PCR) - Final
Not Detected
Influenza Type B (PCR) - Final
Not Detected
Resp Syncytial Virus Type A (PCR) - Final
Not Detected
Resp Syncytial Virus Type B (PCR) - Final
Not Detected
Adenovirus DNA (PCR) - Final
Not Detected
Human Metapneumovirus (PCR) - Final
Not Detected
Parainfluenza Virus Type 1 (PCR) - Final
Not Detected
Parainfluenza Virus Type 2 (PCR) - Final
Not Detected
Parainfluenza Virus Type 3 (PCR) - Final
Not Detected
Parainfluenza Virus Type 4 - Final
Not Detected
Rhinovirus (PCR) - Final
Not Detected
03/05/24 15:48 Legionella Urinary Antigen - Final
Urine Negative for Legionella pneumophila Serogroup 1 antigen.
A negative result does not rule out the possiblity of
Legionella infection due to other serogroups or species of
Legionella. Clinical correlation is recommended.
Streptococcus pneumoniae Antigen (M - Final
Negative for Streptococcus pneumoniae antigen.
A negative result does not exclude infection with
Streptococcus pneumoniae. Clinical correlation is
recommended.
03/05/24 15:48 Respiratory Syncytial Virus Culture - Final
Nasal Swab Negative for Respiratory Syncytial Virus.
A false negative result may be obtained with a specimen
collected early in the acute phase. If symptoms persist, a
new specimen should be tested.
03/05/24 15:48 Influenza Types A & B (BHARAT) - Final
Nasal Swab Negative for Influenza A & B, NAAT
Negative results must be combined with clinical observations
and patient history.
Nucleic Acid Amplification test (NAAT)performed on the
[employer] platform.
03/03/24 CXR: Bilateral parenchymal opacities
03/04/24 Renal US: Large volume bladder with diffusely trabeculated bladder wall. Large postvoid bladder residual. Bilateral ureteral jets are demonstrated.
03/05/24 Abd US: No sonographic evidence of acute cholecystitis, cholelithiasis or biliary ductal dilation.
03/06/24 CXR: The lungs appear slightly hypoinflated compared to most recent radiograph. There is also new blunting of the left lateral costophrenic angle suggesting a small left pleural effusion. There are are patchy parenchymal airspace opacities
throughout both lungs, slightly increasing in the left lower lung. As described previously, a leading consideration is bilateral pneumonia. Neoplastic disease is also a possibility, or a combination of neoplastic disease and pneumonia.
03/06/[address]: Confluent areas of parenchymal airspace opacity within both lungs, central predominance, with air bronchograms but no evidence for bronchial narrowing or obstruction. This could represent pneumonia. Somewhat unusual appearance,
consideration could be given to chronic parenchymal processes such as granulomatosis with polyangiitis, sarcoidosis, or cryptogenic organizing pneumonia. Multiple small nodular densities scattered throughout both lungs. Given the multiple nodules,
pulmonary metastatic disease remains a consideration, although these nodular opacities could be associated with acute or chronic infection/inflammation.
[2024-03-08] MEDS: ATIVAN 0.25 MG PO ×2 (14:06→19:29)
--- NOTE | 2024-03-08 14:34 | CM ---
Anticipated Discharge: > 48 hours
Patient was evaluated by PT; post acute recommendation for disposition to be determined
Case Management will continue to monitor patient's care; and support coordination of disposition plan
--- NOTE | 2024-03-08 15:04 | PN.CDI ---
CDI
- -
CDI:
Physician Documentation Request
Admit Date: 03/03/24 16:06
Dear Doctor Narendra,
Please review the following and provide your response in the progress notes.
Current documentation includes a diagnosis of hypotension.
Clinical Indicators:
Pt admitted with Sepsis/PNA
Pt hypotensive requiring >5L NSS from 03/04-03/07.
03/07 Progress Note: 'MARQUISE on CKD 3b-likely due to hypotension possibly post renal.'
Selected Entries
03/03/24
16:45 03/05/24
23:30 03/07/24
10:00
Blood pressure 74/42 79/66 81/52
Please clarify which of the following is the most likely etiology of the above symptoms and treatment rendered:
Septic shock
Hypovolemic shock
Hypotension Only
Other
Use of terms such as suspected, likely, concern for, or probable (associated with a specific diagnosis that is being evaluated, monitored, or treated as if it exists) are acceptable and can be coded in the inpatient setting, when documented at the
time of discharge.
Thank you,
Rosibel Burks RN, BSN
CDI Specialist
Available via [employer]
Please use your independent medical judgment in providing your response.
--- NOTE | 2024-03-08 16:22 | PTCARENOTE ---
Patient AOx3. Patient forgetful at times and anxious. Emotional support provided to patient and medication provided for anxiety per MAY. Bed alarm on and audible. Patient on RA with SpO2 greater than 92%. Dry occasional cough. VSS. A fib on monitor
with PVC's. Amio gtt stopped per order. Straight cath completed per order due to patient not voiding post boogie removal this AM. Assist x1 when OOB to chair. Family at bedside throughout shift. Call ibarra within reach, bed in lowest position, bed of
wheels locked.
[2024-03-08] MEDS: STERILE WATER FOR INJECTION 20 ML IV (16:32)
[2024-03-08] MEDS: ROCEPHIN 2000 MG IV (16:32)
[2024-03-08 16:45] LABS: Glucose - Point of Care 95 mg/dl (70-99)
[2024-03-08 21:40] LABS: Glucose - Point of Care 119 mg/dl (70-99)
[2024-03-09] VITALS (10 sets, daily range): BP systolic 88–102; BP diastolic 64–81; PULSE 115; O2SAT 98
[2024-03-09 02:02] LABS: Urine Albumin Trace (Neg - Trace); Urine Bilirubin Negative (Negative); Urine Character Clear (Clear); Urine Color Yellow; Urine Glucose Negative (Negative); Urine Ketone Negative (Negative); Urine Leukocyte Trace (Negative); Urine Nitrite Negative (Negative); Urine Occult Blood Negative (Negative); Urine Urobilinogen Negative (Neg - 1+)
[2024-03-09 02:10] LABS: Urine Mucus Moderate
[2024-03-09 02:11] LABS: Urine Amorphous Seen; Urine Bacteria Many (Negative)
[2024-03-09 02:15] LABS: Urine Granular Cast 0-2 /LPF (0); Urine White Cell Cast 0-2 /LPF
--- NOTE | 2024-03-09 02:19 | PTCARENOTE ---
assumed care of patient. pt is AAOx3 but forgetful and very anxious. pt is very frustrated with being in the hospital and wants to go home. positive environment maintained. a-fib on the monitor. 100s-120s. when patient is very anxious, he gets
tachypneic and SOB. pt placed on 2L while sleeping. pt has not voided yet during shift. bladder scan and straight cath protocol followed. urine specimen sent down per order. bed alarm on. care ongoing.
[2024-03-09 04:54] LABS: Hematocrit 29.1 % (39.0-52.0); Hemoglobin 10.1 g/dL (13.0-18.0); Mean Corp Hgb Conc. 34.7 g/dL (33.0-37.0); Mean Corpuscular Hgb 30.1 pg (27.0-31.0); Mean Corpuscular Volume 86.9 fL (80.0-94.0); Mean Platelet Volume 11.9 fL (7.4-10.4); Platelet Count 288 10^3/uL (130-400); Red Blood Cell Count 3.35 10^6/uL (4.70-6.10); Red Cell Dist. Width 13.9 % (11.5-14.5); White Blood Cell Count 11.2 10^3/uL (4.8-10.8)
[2024-03-09 05:23] LABS: ALT (SGPT) 78 U/L (0-50); AST (SGOT) 73 U/L (17-59); Albumin 2.3 g/dl (3.5-5.0); Alkaline Phosphatase 489 U/L (38-126); Blood Urea Nitrogen 48 mg/dl (9-20); Calcium 7.9 mg/dl (8.4-10.2); Carbon Dioxide 19 mmol/L (22-30); Chloride 108 mmol/L (98-107); Estimated Creatinine Clearance 38 ml/min; Glucose 96 mg/dl (70-99); Potassium 3.7 mmol/L (3.5-5.1); Sodium 136 mmol/L (135-145); Total Bilirubin 1.5 mg/dl (0.2-1.3); Total Protein 5.3 g/dl (6.3-8.2); eGFR 40.25
--- NOTE | 2024-03-09 08:13 | W.PN.NEPH.PH ---
Today's Communication / Plan
-
observe
Assessment/Plan
-
Impression:
MARQUISE
CKD 3 (1.5-1.8)
New onset atrial fibrillation with rapid ventricular response= cardiology note
Pneumonia (Bilateral hilar and suprahilar opacities)= infectious disease noted
Non gapped and gapped metabolic acidosis= resolved
BPH
History of DVT
Plan:
MARQUISE/metabolic acidosis
-Now with Baez catheter due to high postvoid bladder scan/continue
-Remains in A-fib with hemodynamic lability on amiodarone drip status post IV fluid bolus last night/cardiology noted
-remains hypotensive
-Check kidney and bladder ultrasound: No hydro or obstructive findings
Continue antibiotics renal dose all medications for appropriate GFR
Renal function is stable at baseline creatinine 1.7
Creatinine peaked at 2.4
Baseline creatinine 1.8. Creatinine per records 1.5 in 2021= does not follow with nephrology outpatient
Continue to monitor urine output and hemodynamics as the acuity is likely secondary to hemodynamic with a component of urinary retention
No changes made today discussed with his medical nurse
-
-
Date of Service: March 09, 2024
CC / HPI / ROS
-
Chief Complaint:
Acute on chronic kidney disease
Metabolic acidosis
New onset A-fib
History of Present Illness:
Creatinine stable at 1.7
Remains in A-fib on amiodarone remains nonoliguric= 1.1 L out
Review of Systems:
No chest pain or shortness of breath
Sitting comfortable in the chair
Labs
-
Labs:
WBC 11.2 10^3/uL (4.8-10.8) H 03/09/24 04:36
RBC 3.35 10^6/uL (4.70-6.10) L 03/09/24 04:36
Hgb 10.1 g/dL (13.0-18.0) L 03/09/24 04:36
Hct 29.1 % (39.0-52.0) L 03/09/24 04:36
Plt Count 288 10^3/uL (130-400) 03/09/24 04:36
Sodium 136 mmol/L (135-145) 03/09/24 04:36
Potassium 3.7 mmol/L (3.5-5.1) 03/09/24 04:36
Chloride 108 mmol/L (98-107) H 03/09/24 04:36
Carbon Dioxide 19 mmol/L (22-30) L 03/09/24 04:36
BUN 48 mg/dl (9-20) H 03/09/24 04:36
Creatinine 1.7 mg/dL (0.7-1.3) H 03/09/24 04:36
eGFR 40.25 03/09/24 04:36
Glucose 96 mg/dl (70-99) 03/09/24 04:36
Calcium 7.9 mg/dl (8.4-10.2) L 03/09/24 04:36
Bbo-H-Fdgseesnddc Pept 22837 pg/ml 03/08/24 05:27
Albumin 2.3 g/dl (3.5-5.0) L 03/09/24 04:36
Physical Exam
-
Vital Signs:
Vital Signs
Temp Pulse Resp BP Pulse Ox
97.5 F 125 26 100/79 94
03/09/24 03:34 03/09/24 06:00 03/09/24 06:00 03/09/24 06:00 03/09/24 04:00
Cardiovascular:: Irregular rate and rhythm
Respiratory:: Bilateral: Coarse
Lung Excursion:: Normal
Abdomen:: Soft
Bowel Sounds:: Normal
Extremity Edema:: None: Bilateral:
--- NOTE | 2024-03-09 08:17 | W.PN.UPDATE ---
Update Note
Progress Note Update
Went to see the patient not available for exam. Unfortunately patient was brought down to the emergency department to see his who was brought in and apparently is not doing well.
I had reviewed his telemetry which showed mildly elevated heart rates he remains in A-fib on oral amiodarone. Blood pressures have remained relatively low as they were yesterday which have limited further rate control. Issues were reviewed with
pulmonary. Relatively low blood pressure could be related to a combination of factors infection/pneumonia, A-fib, tamsulosin, volume status. Pulmonary embolism could also be a consideration in this patient who presented with atrial fibrillation.
However his CT PE study not done due to patient's MARQUISE and CKD. Patient also is on anticoagulation at this point due to A-fib.
-Would continue with oral amiodarone and allow for mildly elevated rates.
-Optimization of treatment of infection/pneumonia as directed by primary team and pulmonary
-Follow-up echo as reassessment due to relatively low blood pressures
-Cortisol level
-Ultrasound of lower extremities
-And continued assessment by pulmonary for CT abnormalities. Although patient being treated for pneumonia other causes for his CT abnormalities are being considered.
-Reassessment when patient back to the unit
--- NOTE | 2024-03-09 09:11 | W.PN.HOSP.TC ---
Addendum entered and electronically signed by Radha Mackey MD, Resident 03/14/24 10:05:
# Transaminitis only
-GGTP was elevated 440 along with other LFTs- could be due to amiodarone use. Unclear as CT abd was negative as well for any liver abnormalities
-Transient Transaminitis due to infection versus amiodarone use
-US Abd was negative
Addendum entered and electronically signed by Carlos Obrien MD 03/09/24 21:48:
Attending Addendum-
I saw and evaluated the patient. I reviewed the resident�s note and agree with findings and plan as documented in the resident�s note. Sub: feels extremely anxious. 'Im leaving today. i dont care. my is on hospice' Denies SOB/palpitations CP.
Full 12 point ROS reviewed and negative except as documented Exam: Vitals reviewed in chart GEN-visibly SOB heart tachycardic irregular lungs tachypneic dry crackles b/l UL abd soft LE no edema non palp bladder
# Sepsis (POA) due to acute B/L PNA:
- blood cx NGTD
- transition to PO
- ID on board
- CT chest-Confluent areas of parenchymal airspace opacity within both lungs, central predominance, with air bronchograms but no evidence for bronchial narrowing or obstruction.
Multiple small nodular densities scattered throughout both lungs
- pulm consult-CT needle biopsy versus robotic bronchoscopy of nodules
- c/s IRAD for bx
# Acute Hypoxemic Respiratory Failure
- from PNA ? CHF component
- wean for sats > 92 %
- patient leaving ama
# MARQUISE on CKD 3b
-likely due to hypotension possibly post renal
-stable
-baseline @ 1.6
-renal following
# T12 sclerotic bone lesion, ? pulm mets, BPH
- highly suspicious for met prostate ca
- uro c/s
- IRAD c/s for bx
- check PSA - elevated
# Anxiety
- add short term benzos prn
- monitor closely- likely contributing to RVR
# Transaminitis
-likely due to hypotension
-improving
-check ct a/p-
1). Small bilateral pleural effusions with moderate interstitial airway disease at both lung bases similar to that seen on the 03/06/[address]
2). Prostatomegaly
3). Concentric thickening of the wall of the urinary bladder such as may be seen with chronic partial bladder outlet obstruction
4).There is a 15 mm sclerotic bone lesion at T12 which may be benign or malignant and which, if clinically indicated, could be further evaluated with bone scan
5). There is small amount of gas in the urinary bladder which may be on the basis of recent instrumentation, however, cystitis with gas producing organism could give this appearance.
# Atrial Fibrillation with Rapid Ventricular Response, new diagnosis:
- unstable
- cont PO amio, may benefit from MARCELO/CV once infection clears and resp status improves
- cont Eliquis
- echo 03/03-Normal biventricular size and systolic function without regional wall motion abnormality.
- cont care in IMU
- cardiology on board
- unsafe to be discharged will have to leave ama
# BPH with urinary retention
- failed TOV
- reinsert Boogie
- no time to do boogie training
- patient to leave with boogie in place
- cont flomax
CODE FULL
Patient left AMA Seen and discussed risk of and follow up plan prior to dc.
Time spent coordinating care, DC planning, review of DC plan of care with resident, transition of care, review of records, med rec/scripts sent electronically, consults, notes, d/w consultants, nursing, family, and CM� 45 mins
Original Note:
Today's Communication/Plan
-
Patient to be seen by Urology. Is spending time with in the ED before she goes home. Needs to be evaluated by specialists to see if he is safe to go home.
Assessment / Plan
Assessment / Plan
Assessment: 78 year old male with a history of BPH and right upper extremity DVT came to the office with ongoing upper respiratory symptoms for a week. Patient was found to have new onset Atrial Fibrillation with RVR alongside probably bilateral
pneumonia. Patient was started on Cardizem and antibiotics and is also being followed by nephrology for ongoing management of his Acute on chronic kidney injury. Patient continues to be in A-Fib but wants to go home to be with his .
Chest X-ray (03/06): Slightly hypoinflated compared to most recent radiograph. There are are patchy parenchymal airspace opacities throughout both lungs, slightly increasing in the left lower lung. As described previously, a leading consideration is
bilateral pneumonia. Neoplastic disease is also a possibility, or a combination of neoplastic disease and pneumonia.
#New onset A-fib with RVR
-[id number]
-Eliquis 2.5 mg twice daily continue
-Echo (03/03):Normal biventricular size and systolic function without regional wall motion abnormality. Mild aortic regurgitation. LV ejection fraction is 50-55%. Normal diastolic function.
-Appreciate cardiology input
-Amiodarone was switched to PO from IV and patient converted to Sinus Rhythm. Overnight patient went back to A-Fib and was switched back to IV
-Currently on PO Amiodarone
-Patient to continue on PO Amiodarone for now
-No plan to add Digoxin at the moment due to recent MARQUISE
-Follow-up echo as per cardiology
-Cortisol level checked
-Ultrasound of lower extremities ordered
# Acute on chronic kidney injury
- High anion gap metabolic acidosis- Anion gap now closed
- Creatinine at baseline (around 2.0)
- No longer on IVF
- MARQUISE was probably due to Pneumonia but will continue monitoring BMP
- Appreciate nephrology-FeNa and urine protein/creatinine ratio within normal limits
- FENa (0.2%)- Urine Creatinine 126.5, Urine Sodium 17
- Renal ultrasound-Large volume bladder with diffusely trabeculated bladder wall. Large postvoid bladder residual. Bilateral ureteral jets are demonstrated.
- Trend BPs
- Appreciate Nephrology
- Boogie removed today but patient needed straight cath due to lack of voiding
# Probable B/L Pneumonia
- Continue Rocephin and Doxycycline (Day 5)
- Afebrile
- No leukocytosis
- Procal elevated on 03/03, Elevated still 1.45 today
- Crackles improved but still audible
- Blood Culture Prelim Results showed no growth
- Chest CT: Small bilateral pleural effusions are present.
Confluent areas of parenchymal airspace opacity within both lungs, central predominance, with air bronchograms but no evidence for bronchial narrowing or obstruction. This could represent pneumonia. Somewhat unusual appearance, consideration could
be given to chronic parenchymal processes such as granulomatosis with polyangiitis, sarcoidosis, or cryptogenic organizing pneumonia.
Multiple small nodular densities scattered throughout both lungs. Given the multiple nodules, pulmonary metastatic disease remains a consideration, although these nodular opacities could be associated with acute or chronic infection/inflammation.
- Bronchoscopy and lung biopsy may be considered
- Pulmonary consulted- input appreciated
#Leukocytosis
-Could be due to his recent Boogie/Cath placement
-Continue to monitor
#Anxiety
- Patient anxious due to his long hospital stay. Wants to go visit his and be there for her
- Given Ativan to help with anxiety
# Transaminitis
-Transient Transaminitis probably due to infection
-Will continue to monitor and trend transaminases
-US Abd was negative
-GGTP elevated (440)- could be due to amiodarone use. Unclear as CT abd was negative as well for any liver abnormalities
# History of BPH
-Continue current management as per Nephrology
-Started on Flomax first dose given this morning
-Straight cath needed
-CT Scan Abd/Pelv
- Prostatomegaly. Concentric thickening of the wall of the urinary bladder such as may be seen with chronic partial bladder outlet obstruction
- 15 mm sclerotic bone lesion at T12 which may be benign or malignant and which, if clinically indicated, could be further evaluated with bone scan
-Follow up with Urology outpatient
-Urology consulted for help in management, input appreciated
-Boogie re-ordered as he continues to retain urine even with straight cath
Full Code- DVT
Prophylaxis:Eliquis
Anticipated Discharge: Within 24 hours
Subjective/Interval History
-
Date of Service: March 09, 2024
Patient very anxious as his is in the ED. Went to see her as she is going home on hospice care. Nurse relayed that there were no acute events overnight and he has been stable. He really wants to go home with his today.
Objective Data
-
Labs:
Laboratory Results
03/09/24 03/09/24
04:36 07:52
WBC 11.2 H
Hgb 10.1 L
Hct 29.1 L
Plt Count 288
PT Cancelled
INR Cancelled
Sodium 136
Potassium 3.7
Chloride 108 H
Carbon Dioxide 19 L
BUN 48 H
Creatinine 1.7 H
Glucose 96
Calcium 7.9 L
Total Bilirubin 1.5 H
AST 73 H
ALT 78 H
Alkaline Phosphatase 489 H
Vital Signs:
Vital Signs
Temp Pulse Resp BP Pulse Ox
97.5 F 125 26 100/79 94
03/09/24 03:34 03/09/24 06:00 03/09/24 06:00 03/09/24 06:00 03/09/24 04:00
I&O
03/08/24 03/09/24 03/10/24
06:59 06:59 06:59
Intake Total 240 / 240
Output Total 875 / 875 1100 / 1100
Balance -635 / -635 -1100 / -1100
Review of Systems
-
History Source: Patient
Constitutional: Reports No Symptoms
EENT: Reports No Symptoms Reported
Respiratory: Reports Cough; Denies Trouble Breathing or Wheezing
Cardiac: Denies Chest Pain, Diaphoresis or Palpitations
Abdomen/GI: Denies Abdominal Pain, Nausea or Vomiting
Genitourinary: Reports Difficulty Voiding
Musculoskeletal: Reports No Symptoms
Skin: Reports No Symptoms
Neuro: Reports No Symptoms
Endocrine: Reports No Symptoms
Hematologic / Lymphatic: Reports No Symptoms
Allergy / Immunology: Reports No Symptoms
Psych: Reports Anxious
Physical Exam
-
General: Well Developed, Well Nourished and No Apparent Distress
HEENT: Normocephalic and Atraumatic
Respiratory: Clear to Auscultation and Non Labored Respirations
Cardiac: S1/S2, Irregular Rhythm and Tachycardic
GI: Soft, Nontender and Nondistended
Musculoskeletal: No Clubbing, No Cyanosis and No Edema
Skin: Warm and Dry
Neuro: Awake, Alert, Oriented and AO x 3
Psych: Anxious
Data Reviewed
-
Labs: Labs Reviewed by me, Discussed with Physician, Discussed with Nurse and Discussed with Patient
[2024-03-09] MEDS: VIBRAMYCIN 100 MG PO (09:50)
[2024-03-09] MEDS: ATIVAN 0.25 MG PO (09:50)
[2024-03-09] MEDS: FLOMAX 0.4 MG PO (09:51)
[2024-03-09] MEDS: PACERONE 400 MG PO (09:51)
[2024-03-09] MEDS: ELIQUIS 2.5 MG PO (09:51)
[2024-03-09 09:55] LABS: Glucose - Point of Care 124 mg/dl (70-99)
--- NOTE | 2024-03-09 10:03 | W.PN.ID1 ---
Date of Service
Date of Service: March 09, 2024
Today's Communication
Transition to cefdinir 300mg po bid and continue doxycycline 100mg po bid through 03/16.
Call if any questions.
Assessment / Plan
# Severe Bilateral PNA/CAP
# New finding of multiple lung nodules
# Non-productive cough - resolving
# Fever - resolved
# Hypotension
# Elevated LFT's trending down- CT unremarkable liver.
# MARQUISE improved
# new onset Afib with RVR
# BPH/urinary retention - boogie dc'd, failed voiding tria;
- COVID neg, Influenza A/B neg , RSV PCR negative
- urine legionella and strep pneumo antigens negative
-respiratory viral panel negative
- Blood cx negative to date
-MRSA screen negative
-CT chest: central opacities with air bronchograms, multiple nodules concerning for metastatic disease.
- CT a/p wo IV contrast: 15mm sclerotic bone lesion T12, could be further evaluated with bone scan; BPH
-Pulmonary following. May need eventual bronch/biopsy.
- Off oxygen.
- Transition ceftriaxone to cefdinir 300mg po bid and continue doxycycline 100mg po bid through 03/16.
Chief Complaint
-: Pneumonia
Subjective / Review of Systems
Continues to feel better. Cough resolving.
Vital Signs / Physical Exam
Vital Signs
Vital Signs
Temp Pulse Resp BP Pulse Ox
98 F 114 26 91/69 94
03/09/24 07:55 03/09/24 09:51 03/09/24 06:00 03/09/24 09:51 03/09/24 04:00
Physical Exam
Constitutional: No Acute Distress and Comfortable
Eyes: Sclera Anicteric
Cardiovascular: Irregular Rate and Other (tachycardic)
Pulmonary: Rales (left base crackles)
Gastrointestinal: Soft, Non Tender and Normal Bowel Sounds
Genito-Urinary: Negative CVA Tenderness
Extremities: Negative Edema
Neurological: AO x 3
Objective Data
Lab Data
Lab Results
03/09/24 04:36
03/09/24 04:36
PT Cancelled 03/09/24 07:52
INR Cancelled 03/09/24 07:52
APTT Cancelled 03/04/24 11:00
Estimated Creat Clear 38 ml/min 03/09/24 04:36
Lactic Acid 1.1 mmol/L (0.7-2.0) 03/03/24 14:27
Total Bilirubin 1.5 mg/dl (0.2-1.3) H 03/09/24 04:36
GGT 440 U/L (15-73) H 03/08/24 05:27
AST 73 U/L (17-59) H 03/09/24 04:36
ALT 78 U/L (0-50) H 03/09/24 04:36
Alkaline Phosphatase 489 U/L (38-126) H 03/09/24 04:36
Most recent labs reviewed.
Micro Results:
03/09/24 01:54 Urine Culture - Pending
Urine
03/05/24 15:48 Blood Culture - Preliminary
Blood/Venous No Growth in 72 hours- Final report to follow
03/05/24 11:10 Blood Culture - Preliminary
Blood/Venous No Growth in 72 hours- Final report to follow
03/05/24 11:10 MRSA Screen - Final
Nose No Methicillin Resistant Staphylococcus aureus isolated.
03/05/24 15:48 Influenza Type A (PCR) - Final
Nasalpharynx Not Detected
Influenza Type A (H1) (PCR) - Final
Not Detected
Influenza Type A (H3) (PCR) - Final
Not Detected
Influenza Type B (PCR) - Final
Not Detected
Resp Syncytial Virus Type A (PCR) - Final
Not Detected
Resp Syncytial Virus Type B (PCR) - Final
Not Detected
Adenovirus DNA (PCR) - Final
Not Detected
Human Metapneumovirus (PCR) - Final
Not Detected
Parainfluenza Virus Type 1 (PCR) - Final
Not Detected
Parainfluenza Virus Type 2 (PCR) - Final
Not Detected
Parainfluenza Virus Type 3 (PCR) - Final
Not Detected
Parainfluenza Virus Type 4 - Final
Not Detected
Rhinovirus (PCR) - Final
Not Detected
03/05/24 15:48 Legionella Urinary Antigen - Final
Urine Negative for Legionella pneumophila Serogroup 1 antigen.
A negative result does not rule out the possiblity of
Legionella infection due to other serogroups or species of
Legionella. Clinical correlation is recommended.
Streptococcus pneumoniae Antigen (M - Final
Negative for Streptococcus pneumoniae antigen.
A negative result does not exclude infection with
Streptococcus pneumoniae. Clinical correlation is
recommended.
03/05/24 15:48 Respiratory Syncytial Virus Culture - Final
Nasal Swab Negative for Respiratory Syncytial Virus.
A false negative result may be obtained with a specimen
collected early in the acute phase. If symptoms persist, a
new specimen should be tested.
03/05/24 15:48 Influenza Types A & B (BHARAT) - Final
Nasal Swab Negative for Influenza A & B, NAAT
Negative results must be combined with clinical observations
and patient history.
Nucleic Acid Amplification test (NAAT)performed on the
[facility] platform.
03/03/24 CXR: Bilateral parenchymal opacities
03/04/24 Renal US: Large volume bladder with diffusely trabeculated bladder wall. Large postvoid bladder residual. Bilateral ureteral jets are demonstrated.
03/05/24 Abd US: No sonographic evidence of acute cholecystitis, cholelithiasis or biliary ductal dilation.
03/06/24 CXR: The lungs appear slightly hypoinflated compared to most recent radiograph. There is also new blunting of the left lateral costophrenic angle suggesting a small left pleural effusion. There are are patchy parenchymal airspace opacities
throughout both lungs, slightly increasing in the left lower lung. As described previously, a leading consideration is bilateral pneumonia. Neoplastic disease is also a possibility, or a combination of neoplastic disease and pneumonia.
03/06/[address]: Confluent areas of parenchymal airspace opacity within both lungs, central predominance, with air bronchograms but no evidence for bronchial narrowing or obstruction. This could represent pneumonia. Somewhat unusual appearance,
consideration could be given to chronic parenchymal processes such as granulomatosis with polyangiitis, sarcoidosis, or cryptogenic organizing pneumonia. Multiple small nodular densities scattered throughout both lungs. Given the multiple nodules,
pulmonary metastatic disease remains a consideration, although these nodular opacities could be associated with acute or chronic infection/inflammation.
--- NOTE | 2024-03-09 10:17 | PN.CDI ---
CDI
- -
CDI:
Physician Documentation Request
Admit Date: 03/03/24 16:06
Dear Doctor Narendra,
Please review the following and provide your response in the progress notes.
Clinical Indicators:
Pt admitted with Sepsis/PNA
03/08 update progress note: 'Elevated LFTs:-likely due to hypotension....GGTP elevated (440).'
Laboratory Tests
03/03/24 03/06/24 03/07/24
15:32 08:32 04:51
AST 103 H 134 H 177 H
ALT 89 H 89 H 111 H
Alkaline Phosphatase 589 H 622 H 628 H
Based on the above, could you clarify in the progress notes, the appropriate diagnosis, if significant, that supports the above abnormalities and additional evaluation, monitoring and/or treatment rendered:
Shock Liver
Transaminitis only
Other
Use of terms such as suspected, likely, concern for, or probable (associated with a specific diagnosis that is being evaluated, monitored, or treated as if it exists) are acceptable and can be coded in the inpatient setting, when documented at the
time of discharge.
Thank you,
Rosibel Burks RN, BSN
CDI Specialist
Available via [facility] [employer]
Please use your independent medical judgment in providing your response.
--- NOTE | 2024-03-09 10:22 | W.PN.PUL.V3 ---
Today's Communication / Plan
-
Wean oxygen
Established discharge supplemental oxygen needs-told patient he might require oxygen at the time of discharge-willing
Options in regards to sampling from the lungs-ideally would require routine, AFB, fungal cultures as well as cytology and pathology-reviewed CT needle biopsy, robotic bronchoscopy with patient at length-he is under significant stress, being
discharged home on hospice would like to go home
Recommend discharge on oxygen if needed, finite course of antibiotics and outpatient PET scan with subsequent decision in regards to biopsy
Assessment
-
78-year-old male without significant past medical history presented with a bad cold and reported cough, generalized weakness and fatigue admitted and treated for pneumonia also seen by cardiology for new onset atrial fibrillation and nephrology for
acute kidney injury as well as infectious disease for bilateral pneumonia-pulmonary consulted for abnormal CT chest/pneumonia/hypoxemia 03/08/2024.
Ilyyayhuv-bfnukglip-nzoiprdg
Abnormal CT chest-multiple nodular/masses suspicious for potential metastatic disease
New onset atrial fibrillation with rapid ventricular response
MARQUISE
Mild niogxd-bjackpbquh-oxherzuhna 10.3
Conditions present prior to admission:
Denies CAD, pulmonary, renal, gastrointestinal or neurologic disease
Plan
Respiratory decompensation likely due to bilateral multiple nodular/masses with broad differential including atypical pneumonias, granulomatosis with polyangiitis, sarcoidosis, cryptogenic organizing pneumonia, metastatic cancer
Supplemental oxygen as needed-told patient he may require supplemental oxygen at time of discharge
Incentive spirometry encouraged
Aspiration precautions
Nebulizers if needed-currently not bronchospastic
CT abdomen and pelvis-03/08/2024-small bilateral pleural effusions with moderate interstitial airway disease in both lung bases similar to previous CT chest, prostamegaly, concentric thickening of the wall of the urinary bladder, 15 mm sclerotic
bone lesion T12
Will likely need biopsy for more definitive diagnosis-multiple nodular masses in the lungs are quite peripheral and potentially amenable through CT needle biopsy versus robotic bronchoscopy
Options in regards to sampling from the lungs-ideally would require routine, AFB, fungal cultures as well as cytology and pathology-reviewed CT needle biopsy, robotic bronchoscopy with patient at length-he is under significant stress, being
discharged home on hospice would like to go home
Recommend discharge on oxygen if needed, finite course of antibiotics and outpatient PET scan with subsequent decision in regards to biopsy
Cultures reviewed
Infectious disease following-correspondence reviewed
Ceftriaxone and doxycycline continue-finite course
Cardiology following-correspondence reviewed
Atrial fibrillation rate control
Amiodarone load ongoing
Nephrology following
Monitor renal function
Replace electrolytes
Urology to see patient
DVT prophylaxis-on Eliquis
Nutrition
Early mobilization
Reviewed with nursing
Diagnostic data:
Chest x-ray 06/10/2017-NAD
Chest x-ray 03/03/2024-bilateral parenchymal opacifications
CT chest 03/06/2024-centrally predominant parenchymal opacifications with atypical presentation for pneumonia and multiple small nodular densities scattered throughout both lungs-differential granulomatosis with polyangiitis, sarcoidosis,
cryptogenic organizing pneumonia or metastatic cancer or even chronic infection/inflammation
Echocardiogram 03/03/2024-EF 50-55%, mild aortic regurgitation
Subjective Data
-
Date of Service:
Date of Service: March 09, 2024
Chief Complaint: Pulmonary Follow Up and Dyspnea Follow Up
Subjective:
Without complaints of chest congestion, chest pain, hemoptysis, and has some shortness of breath with exertion, under significant stress as his is unfortunately dying
Review of Systems
General: Other (Per HPI)
Objective Data
Data Reviewed
Vital Signs / I&O:
Vital Signs
Temp Pulse Resp BP Pulse Ox
98 F 114 26 91/69 94
03/09/24 07:55 03/09/24 09:51 03/09/24 06:00 03/09/24 09:51 03/09/24 04:00
Intake and Output
03/08/24 03/09/24 03/10/24
06:59 06:59 06:59
Intake Total 240 / 240
Output Total 875 / 875 1100 / 1100
Balance -635 / -635 -1100 / -1100
SaO2: 94
Nasal Cannula flow liters per minute: 2
Physical Exam
General: Respiratory Distress (n) and Comfortable
HEENT: Normocephalic, Anicteric and Moist Mucous Membranes
Cardiovascular: Regular Rhythm
Respiratory: Wheeze (n), Crackles, Rhonchi (n), Non-Labored Respirations, Accessory Resp Muscle Use (n) and Stridor (n)
GI: Soft, Non Distended and Non Tender
Neurology: Awake, Alert and No Motor Deficits
Skin: Warm, Good Color, Cyanosis (n) and Jaundice (n)
Labs/Micro/Reports
Lab Data
03/09/24 04:36
03/09/24 04:36
Laboratory Results
03/09/24
07:52
PT Cancelled
INR Cancelled
Microbiology
03/05/24 15:48 Blood/Venous Blood Culture - Preliminary
No Growth in 72 hours- Final report to follow
03/05/24 11:10 Blood/Venous Blood Culture - Preliminary
No Growth in 72 hours- Final report to follow
03/05/24 11:10 Nose MRSA Screen - Final
No Methicillin Resistant Staphylococcus aureus isolated.
03/05/24 15:48 Nasalpharynx Influenza Type A (PCR) - Final
Not Detected
03/05/24 15:48 Nasalpharynx Influenza Type A (H1) (PCR) - Final
Not Detected
03/05/24 15:48 Nasalpharynx Influenza Type A (H3) (PCR) - Final
Not Detected
03/05/24 15:48 Nasalpharynx Influenza Type B (PCR) - Final
Not Detected
03/05/24 15:48 Nasalpharynx Resp Syncytial Virus Type A (PCR) - Final
Not Detected
03/05/24 15:48 Nasalpharynx Resp Syncytial Virus Type B (PCR) - Final
Not Detected
03/05/24 15:48 Nasalpharynx Adenovirus DNA (PCR) - Final
Not Detected
03/05/24 15:48 Nasalpharynx Human Metapneumovirus (PCR) - Final
Not Detected
03/05/24 15:48 Nasalpharynx Parainfluenza Virus Type 1 (PCR) - Final
Not Detected
03/05/24 15:48 Nasalpharynx Parainfluenza Virus Type 2 (PCR) - Final
Not Detected
03/05/24 15:48 Nasalpharynx Parainfluenza Virus Type 3 (PCR) - Final
Not Detected
03/05/24 15:48 Nasalpharynx Parainfluenza Virus Type 4 - Final
Not Detected
03/05/24 15:48 Nasalpharynx Rhinovirus (PCR) - Final
Not Detected
03/05/24 15:48 Urine Legionella Urinary Antigen - Final
Negative for Legionella pneumophila Serogroup 1 antigen.
A negative result does not rule out the possiblity of
Legionella infection due to other serogroups or species of
Legionella. Clinical correlation is recommended.
03/05/24 15:48 Urine Streptococcus pneumoniae Antigen (M - Final
Negative for Streptococcus pneumoniae antigen.
A negative result does not exclude infection with
Streptococcus pneumoniae. Clinical correlation is
recommended.
[2024-03-09 11:04] LABS: Cortisol, Random 32.1 ug/dl
[2024-03-09] MEDS: OMNICEF 300 MG PO (11:44)
[2024-03-09 11:58] LABS: Glucose - Point of Care 96 mg/dl (70-99)
--- NOTE | 2024-03-09 12:51 | CM ---
O2 2L. Boogie. PT/OT recommend HH. PICC line - to be discontinued prior to d/c.
Met with patient and step-daughter Amalia Ybarra (ph [phone]), with Dr Obrien, Resident Buddy Mackey, nurse Vanessa; patient is adamant that he go home today because his Colette is in the ED today and being sent home with Palliative Care.
Amalia crying, upset and pleaded with patient to stay here today for further care, and so family can attend to and get her settled at home. Please repeatedly saying he intends to go home today despite MD explanations- he signed out AMA. The
patient agreed to boogie remaining in place. He agrees to [facility] for nurse due to boogie, and PT/OT. He is aware that his daughter will arrange for a family member to take him home later today. IMM not issued as patient left AMA.
Phone call to [facility] Glover; left ms re; referral.
[facility]
--- NOTE | 2024-03-09 13:10 | W.PN.UPDATE ---
Update Note
Progress Note Update
Patient decided to leave the hospital against medical advice. Patient wanted to go home to be with his who is currently going on palliative care. Patient was warned of risks of leaving including adverse events that can occur that could lead to
. Patient was set up to have a visiting nurse help him at nurse and was told to follow up with his PCP and Urologist.
--- NOTE | 2024-03-09 15:10 | VNURNOTE ---
Rec'ed info from LISBETH Major that patient is signing AMA with boogie cath. [facility] Intake informed this author that pt is not current w/PCP (was last seen 2 years ago). Reached out to resident Dr Mackey and Dr Obrien and confirmed they will follow patient
as outpt until appt made at residency clinic. Updated Belen in [facility] Intake. LISBETH Major aware. Call made to step daughter Nora Ybarra, liaison started to explain [facility] services. She had to end call abruptly. [facility] and family to
make appt w/res clinic at [facility] visit tomorrow.
--- NOTE | 2024-03-09 16:07 | CM ---
O2 2L. Boogie. PT/OT recommend HH. PICC line - to be discontinued prior to d/c.
Met with patient and step-daughter Amalia Ybarra (ph [phone]), with Dr Obrien, Resident Buddy Mackey, nurse Vanessa; patient was alert/oriented and speech was clear & coherent. Patient was adamant that he go home today because his Colette was
in the ED today and discharged home with Palliative Care. Amalia appeared upset and asked patient to stay here today for further care, and so family can attend to and get her settled at home. Patient repeatedly saying he intends to go
home today - he signed out AMA. The patient agreed to boogie remaining in place. He agrees to [facility] for nurse due to boogie, and PT/OT. He is aware that his daughter will arrange for a family member to take him home later today. IMM not issued as
patient leaving AMA.
LISBETH spoke with grand-daughter Hali and daughter Liliya Oliveros (ph [phone]); Liliya agrees to come in this evening and provide transport home for the patient.
[facility]; she will add SW to the referral due to family undergoing the stress of having to care for patient and simultaneously.
Plan home today AMA with [facility].
--- NOTE | 2024-03-09 16:31 | PTCARENOTE ---
Patient requested to speak to MD to sign out AMA. Dr. Mackey and Dr. Obrien to bedside to discuss with patient. This RN witnessed signature for AMA form. Patient oriented and understood plan of care and education that was provided. Patient d/c with
boogie. Boogie education provided to patient and patient performed proper technique to empty boogie bag.
Due to patient signing out AMA and family verbalizing concerns and questions about patient coming home, the community health outreach worker and director made aware. Group meeting with medical team was completed with telephone call with patients step daughter
Liliya Oliveros.
Patient informed that step daughter would be able to pick him up in 2 hours. Patient stated, 'I am not waiting that long'. Patient ordered [employer] on his phone. This RN and PCT brought patient to [employer] via wheelchair along with patient belongings.
Patient ambulated safely to [facility] vehicle.
--- NOTE | 2024-03-09 17:32 | W.DCSUMMARY ---
Addendum entered and electronically signed by Carlos Obrien MD 03/09/24 22:18:
Read, reviewed, and agree. See same day progress note for additional details. Patient left AMA. significant time spent trying to convince patient to stay. Family requesting 302. d/w psych jose and not applicable to competent patient. Patient of
sound mind to make decision.
Guilherme Obrien MD
Original Note:
Documented by User: Radha Mackey MD, Resident 03/09/24 17:45
Discharge Summary
Discharge Data
Date of Admission: 03/03/24
Date of Discharge: 03/09/24
-
Pending Results: Yes
Additional Pending Results:
KENDRICK IgG Screen
Proteinase 3 (PR3) Ab
Myeloperoxidase Ab
Hospital Course
Discharging Physician : Dr Carlos Obrien, Dr. Radha Mackey
Disposition : Home
Primary care physician : Dr. Cong Lu
Principal Discharge diagnosis : Acute Respiratory Failure with Hypoxia
Chronic Discharge diagnosis : Atrial Fibrillation, BPH, Chronic Kidney Disease
Hospital Course :
78 year old male with no past medical history of significant illness came from urgent care due to elevated heart rate. Patient had been dealing with some cold symptoms for the past week and reported cough, sore throat, lethargy and fatigue. These
symptoms made him go to the urgent care where he was found to be tachycardic and an ECG showed atrial fibrillation. Patient was started on a Cardizem drip and admitted to the hospital due to his Atrial Fibrillation. Patient's CXR at this time showed
bilateral infiltrates and there was concern for pneumonia. Patient's BNP was elevated with elevated procalcitonin levels so IV fluids were stopped but Ceftriaxone/Azithromycin were started at this time. Patient underwent an Echocardiogram which
showed mild aortic regurgitation but normal size and function of the ventricles. Patient was having trouble with urinary retention as he had a history of prostate enlargement, leading to anion gap acidosis which was treated with sodium bicarbonate.
Patient continued to go in and out of A-Fib and his pneumonia continued to be treated with antibiotics. Patient was eventually started on an Amiodarone drip and Eliquis. Continued to remain hypotensive and tachycardic and kept going back into A-Fib.
Patient underwent CT scans of his Chest that showed some masses in his lungs that could be due to his pneumonia or metastasis. His CT Abd/Pelvis showed a mass in his T12 vertebrae that could be due to a malignancy as well. Patient also had
difficulty urination and was placed on a Baez. He has a history of prostatomegaly and was referred to be evaluated by Urologist due to possible malignancy. However on 03/09, patient's came to the hospital and went home on home
hospice/palliative care. Patient, against medical advice, made the decision to leave the hospital and go home to be with his . His daughters tried to convince him to stay and get the care he needed but he was not interested and wanted to go
home. Patient left the hospital of his own accord and made the decision with a sound mind.
Important imaging findings :
CT Chest W/o Iv Contrast (03/06/2024)
-Small bilateral pleural effusions are present.
-Confluent areas of parenchymal airspace opacity within both lungs, central predominance, with air bronchograms but no evidence for bronchial narrowing or obstruction. This could represent pneumonia. Somewhat unusual appearance, -consideration could
be given to chronic parenchymal processes such as granulomatosis with polyangiitis, sarcoidosis, or cryptogenic organizing pneumonia.
-Multiple small nodular densities scattered throughout both lungs. Given the multiple nodules, pulmonary metastatic disease remains a consideration, although these nodular opacities could be associated with acute or chronic infection/inflammation.
-As warranted, consideration could be given to bronchoscopy and lung biopsy.
-Coronary artery calcifications are present. Please correlate with symptoms of and risk factors for coronary artery disease, with further workup as clinically appropriate.
CT Abd/pelvis Wo Iv Cont (03/08/2024)
1). Small bilateral pleural effusions with moderate interstitial airway disease at both lung bases similar to that seen on the 03/06/[address]
2). Prostatomegaly
3). Concentric thickening of the wall of the urinary bladder such as may be seen with chronic partial bladder outlet obstruction
4).There is a 15 mm sclerotic bone lesion at T12 which may be benign or malignant and which, if clinically indicated, could be further evaluated with bone scan
5). There is small amount of gas in the urinary bladder which may be on the basis of recent instrumentation, however, cystitis with gas producing organism could give this appearance.
Echocardiogram (03/04/2024)
-Normal biventricular size and systolic function without regional wall motion abnormality.
-Mild aortic regurgitation.
-Ascending aorta dilatation, measuring 4.1 cm.
-No prior study available for comparison.
Echocardiogram (03/09/2024)
-Left ventricular ejection fraction is approximately 55%, by visual assessment.
-Wall motion is consistent with conduction abnormality.
-Normal right ventricular size and function.
-No significant change since the prior study of 03/04/2024.
US Renal With Bladder (03/04/2024)
-Both kidneys appear sonographically within normal limits, with no evidence for pelvicalyceal dilation.
-Large volume bladder with diffusely trabeculated bladder wall. Large postvoid bladder residual. Bilateral ureteral jets are demonstrated.
US Abdomen Complete/Upper (03/05/2024)
-No sonographic evidence of acute cholecystitis, cholelithiasis or biliary ductal dilation.
US Periph Venous LOWER Ext Hipolito (03/09/2024)
-No evidence of deep venous thrombosis bilaterally.
CR Chest Portable - 1 View (03/06/2024)
-Lungs appear hypoinflated compared to most recent radiograph.
-Small left pleural effusion. See above discussion.
CR Chest Portable - 1 View (03/07/2024)
1. New left upper extremity PICC line in place with the catheter tip projecting over the cavoatrial junction.
2. EXTENSIVE BILATERAL UPPER LOBE PERIBRONCHIAL AIRSPACE CONSOLIDATION in a perihilar distribution. MANY IRREGULAR SHAPED SOLID PULMONARY NODULES diffusely distributed throughout the lungs. Diagnostic possibilities are (1) sarcoidosis, (2) other
inflammatory pneumonitis, (3) atypical infection, or (4) extranodal lymphoma.
3. Small bilateral pleural effusions.
Discharge Plan
-
Patient Disposition: Against Medical Advice
Discharge Diagnosis/Procedures: Sepsis (POA) due to Acute B/L PNA
Condition: Fair
Diet: Low Cholesterol
Activity: As tolerated
Driving Restrictions: As prior to admission
Bathing Restrictions: None
Blood Work: CBC in one week
CMP in one week
Referrals:
Tex Lu MD [Family Provider] -
David Scott MD [Active] - (Dr. Scott or [facility]DER-needs PET scan and possible CT needle biopsy or robotic bronchoscopy)
Prescriptions:
No Action
No Current Medications
0
Discharge Orders:
Discharge Patient (As Directed); Ordered 03/09/24
Ordered By: Guevara Dsouza
Discharge Date and Time
Discharge Date/Time: 03/09/24 16:47
Print Language: IRISH

Documented by User: Carlos Obrien MD 03/09/24 21:41
Discharge Summary
Discharge Data
Date of Admission: 03/03/24
Date of Discharge: 03/09/24
Discharge Plan
-
Patient Disposition: Against Medical Advice
Discharge Diagnosis/Procedures: Sepsis (POA) due to Acute B/L PNA
Condition: Fair
Diet: Low Cholesterol
Activity: As tolerated
Driving Restrictions: As prior to admission
Bathing Restrictions: None
Blood Work: CBC in one week
CMP in one week
Referrals:
Tex Lu MD [Family Provider] -
David Scott MD [Active] - (Dr. Scott or [facility]DER-needs PET scan and possible CT needle biopsy or robotic bronchoscopy)
Prescriptions:
No Action
No Current Medications
0
Discharge Orders:
Discharge Patient (As Directed); Ordered 03/09/24
Ordered By: Guevara Dsouza
Discharge Date and Time
Discharge Date/Time: 03/09/24 16:47
Print Language: IRISH
[2024-03-10 18:29] LABS: ANA, IgG Reflex to HEp-2 None Detected (None Detected)
[2024-03-10 23:00] LABS: Myeloperoxidase Antibody 1 AU/mL (0-19); Serine Protease-3, IgG 0 AU/mL (0-19)
== END 2024-03-09 16:47 | disposition left against medical advice (07) | DRG 871 ==
LOC: IMU 16:06
PROVIDERS: Internal Medicine; Physician Assistant Medical; Radiology Diagnostic Radiology; Student in an Organized Health Care Education/Training Program; ADMITTING PHYSICIAN Hospitalist; ATTENDING PHYSICIAN Family Medicine; CONSULT PHYSICIAN Internal Medicine Critical Care Medicine; CONSULT PHYSICIAN Internal Medicine Infectious Disease; CONSULT PHYSICIAN Specialist; EMERGENCY PHYSICIAN Emergency Medicine; FAMILY PHYSICIAN Internal Medicine; OTHER PHYSICIAN Internal Medicine Cardiovascular Disease
PROC: 02HV33Z Insertion of Infusion Device into Superior Vena Cava, Percutaneous Approach (ICD-10-PCS; 2024-03-07)
DX: A41.9 Sepsis, unspecified organism (principal); Z53.29 Procedure and treatment not carried out because of patient's decision for other reasons; J18.9 Pneumonia, unspecified organism; J96.01 Acute respiratory failure with hypoxia; E87.20 Acidosis, unspecified; N17.9 Acute kidney failure, unspecified; C78.01 Secondary malignant neoplasm of right lung; C78.02 Secondary malignant neoplasm of left lung; C79.51 Secondary malignant neoplasm of bone; T82.838A Hemorrhage due to vascular prosthetic devices, implants and grafts, initial encounter; D62 Acute posthemorrhagic anemia; I48.91 Unspecified atrial fibrillation; N18.32 Chronic kidney disease, stage 3b; R74.01 Elevation of levels of liver transaminase levels; I95.9 Hypotension, unspecified; N40.1 Benign prostatic hyperplasia with lower urinary tract symptoms; R33.8 Other retention of urine; Z86.718 Personal history of other venous thrombosis and embolism; Z11.52 Encounter for screening for COVID-19
CPT/HCPCS: 93308; 71045; 71046; 71250; 74176; 76700; 76770; 80048; 80053; 80202; 81003; 81015; 82248; 82533; 82570; 82962; 82977; 83036; 83516; 83605; 83880; 83970; 84145; 84156; 84300; 84443; 85025; 85027; 85610; 85730; 86038; 87040; 87070; 87086; 87449; 87502; 87633; 87807; 87811; 87899; 93005; 93306; 93970; 96365; 96366; 96367; 97162; 97167; 97530; 99285; G0103

== ENCOUNTER → 2024-03-29 11:18 | Outpatient (REF) | payer MEDICARE, SELFPAY | LOC: RAD 11:18 | PROVIDERS: ATTENDING PHYSICIAN Internal Medicine | DX: J18.9 Pneumonia, unspecified organism (principal) | CPT/HCPCS: 71046 ==